=== PATIENT | female | born 1990 | race Caucasian/White ===

== ENCOUNTER → 2017-07-31 | Outpatient (CLI) | payer OTHER ==
[2017-07-31 09:43] LABS: HCT 35.1 % (34.0-46.0); HGB 11.8 gm/dL (11.4-16.0); MCH 32.3 pg (25.0-35.0); MCHC 33.6 g/dL (31.0-37.0); MCV 96.2 fL (80.0-100.0); Mean Platelet Volume 6.9; Platelet Count 231 k/uL (150-450); RBC 3.64 m/uL (3.80-5.40); RDW 13.5 % (11.5-15.5); WBC 7.3 k/uL (3.8-10.6)
[2017-07-31 10:04] LABS: Glucose 94 mg/dL (74-99)
[2017-07-31 17:06] LABS: HIV AB P24 Non-Reactive (Non-Reactive); HIV P24 AG Non-Reactive (Non-Reactive)
[2017-08-01 02:53] LABS: Toxoplasma Antibody (IgG) <3.0 IU/mL (<7.2); Toxoplasma Antibody (IgM) 3.7 AU/mL (<8.0)
[2017-08-01 09:07] LABS: Alpha Fetoprotein (M.O.M) 0.53; B-HCG (M.O.M.) 0.68; Gestational Age (days) 2; Human Chorionic Gonadotropin 14.1 IU/mL; Inhibin A (M.O.M.) 0.91; Maternal Age at EDD (Yrs) 29; Smoker No; Unconjugated Estriol (M.O.M.) 1.28
== END | disposition home or self-care (01) ==
LOC: LABWHC1 09:02
PROVIDERS: ATTEND Obstetrics & Gynecology
DX: O26.812 Pregnancy related exhaustion and fatigue, second trimester (principal); Z3A.00 Weeks of gestation of pregnancy not specified
CPT/HCPCS: 36415; 82105; 82565; 82677; 82947; 84443; 84702; 85027; 86336; 86762; 86777; 86778; 86780; 86850; 86900; 86901; 87340; 87390

== ENCOUNTER → 2017-09-20 | Outpatient (CLI) | payer OTHER ==
[2017-09-20 16:00] LABS: HCT 36.8 % (34.0-46.0); HGB 12.4 gm/dL (11.4-16.0); MCH 32.4 pg (25.0-35.0); MCHC 33.6 g/dL (31.0-37.0); MCV 96.4 fL (80.0-100.0); Mean Platelet Volume 6.3; Platelet Count 264 k/uL (150-450); RBC 3.82 m/uL (3.80-5.40); RDW 13.1 % (11.5-15.5); WBC 8.8 k/uL (3.8-10.6)
== END | disposition home or self-care (01) ==
LOC: LABWHC1 14:22
PROVIDERS: ATTEND Obstetrics & Gynecology
DX: Z34.82 Encounter for supervision of other normal pregnancy, second trimester (principal)
CPT/HCPCS: 36415; 82950; 85027

== ENCOUNTER 2017-10-19 11:34 | Outpatient (CLI) | payer OTHER ==
[2017-10-19 12:21] LABS: Appearance,Urine Cloudy (Clear); Bacteria,Urine Few /hpf; Bilirubin,Urine Negative (Negative); Blood,Urine Negative (Negative); Color,Urine Colorless; Glucose,Urine (UA) Negative (Negative); Ketones,Urine Negative (Negative); Leukocyte Esterase,Urine Negative (Negative); Nitrite,Urine Negative (Negative); Protein,Urine Negative (Negative); Specific Gravity,Urine 1.004 (1.001-1.035); Squamous Epithelial Cell,Urine 1 /hpf (0-4); Urobilinogen,Urine <2.0 mg/dL (<2.0); WBC,Urine 3 /hpf (0-5)
[2017-10-19 12:31] LABS: Basophils % (A) 0 %; Eosinophils # (A) 0.1 k/uL (0-0.7); Eosinophils % (A) 1 %; HCT 32.9 % (34.0-46.0); HGB 11.2 gm/dL (11.4-16.0); Lymphocytes # (A) 0.9 k/uL (1.0-4.8); Lymphocytes % (A) 11 %; MCH 31.9 pg (25.0-35.0); MCHC 34.1 g/dL (31.0-37.0); MCV 93.7 fL (80.0-100.0); Mean Platelet Volume 6.9; Monocytes # (A) 0.6 k/uL (0-1.0); Monocytes % (A) 7 %; Neutrophils # (A) 6.9 k/uL (1.3-7.7); Neutrophils % (A) 80 %; Platelet Count 221 k/uL (150-450); RBC 3.51 m/uL (3.80-5.40); RDW 12.9 % (11.5-15.5); WBC 8.6 k/uL (3.8-10.6)
[2017-10-19 12:45] LABS: ALT 31 U/L (9-52); AST 21 U/L (14-36); Albumin 2.9 g/dL (3.5-5.0); Alkaline Phosphatase 71 U/L (38-126); Anion Gap 6 mmol/L; Blood Urea Nitrogen 10 mg/dL (7-17); Calcium 8.7 mg/dL (8.4-10.2); Carbon Dioxide 22 mmol/L (22-30); Chloride 107 mmol/L (98-107); Glucose 98 mg/dL (74-99); LDH 401 U/L (313-618); Potassium 3.7 mmol/L (3.5-5.1); Sodium 135 mmol/L (137-145); Total Bilirubin 0.4 mg/dL (0.2-1.3); Total Protein 6.1 g/dL (6.3-8.2); Uric Acid 2.9 mg/dL (3.7-7.4)
[2017-10-19 13:27] VITALS: BP 121/75; PULSE 83; RESP 18; TEMP 97.9
--- NOTE | 2017-10-26 07:59 | P.MSEPDOC ---
Presenting Problems - Arrival Data Date of Arrival on Unit: 10/19/17 Time of Arrival on Unit: 11:40 Mode of Transport: Ambulatory Vital Signs - Temperature Temperature: 97.9 F Temperature Source: Oral - Pulse Right Pulse Oximetery Pulse Rate: 83 Pulse Assessment Method: Pulse Oximetry - Respirations Respiratory Rate: 18 Oxygen Delivery Method: Room Air O2 Sat by Pulse Oximetry: 97 - Blood Pressure Right Arm Blood Pressure: 121/75 Blood Pressure Mean: 90 Blood Pressure Source: Automatic Cuff Medical Screen Scoring (Post) - Cervical Exam Dilation: Exam Deferred Effacement: Exam Deferred Membranes: Intact - Uterine Contractions Frequency: > 5 minutes apart = 1 Duration: N/A Intensity: N/A - Maternal Vital Signs Maternal Temperature: N/A Maternal Blood Pressure: N/A Signs of Preeclampsia: N/A Maternal Respirations: N/A - Pain Assessment Pain Scale Used: Numeric (1 - 10) Pain Intensity: 0 - Maternal Trauma Maternal Trauma: N/A - Assessment Heart Rate: 125 Heart Rate - NICHD Category: Category I (Normal) = 0 NST: Reactive Position: N/A Station: N/A - Total Score Total Score (Post): 1 - Post Treatment Level of Risk Post Treatment Level of Risk: Low (0-5) Physician Notification (Post) - Physician Notified Physician Notified Date: 10/19/17 Physician Notified Time: 12:00 Physician/Practitioner Notified:: Dr Chavez Spoke With: via telephone New Order Received: Yes (PIH labwork done, serial BPS performed, Pt discharged home.) Disposition - Disposition OB Disposition: Discharge to home Discharge Date: 10/19/17 Discharge Time: 13:22 I agree with the RN Medical Screening Exam: Yes Risk & Benefit of care provided described in d/c instruction: Yes Diagnosis: RELATED CONDITIONS, UNSPECIFIED, THIRD TRIMESTER
== END 2017-10-19 13:22 | disposition home or self-care (01) ==
LOC: FBPOP 11:34
PROVIDERS: ATTEND Obstetrics & Gynecology
DX: O26.93 Pregnancy related conditions, unspecified, third trimester (principal); Z3A.00 Weeks of gestation of pregnancy not specified
CPT/HCPCS: 59025; 80053; 83615; 84550; 85025; 81001; G0463; 99215

== ENCOUNTER → 2017-10-23 00:26 | Outpatient (CLI) | payer OTHER ==
[2017-10-23 00:19] VITALS: BP 114/58; PULSE 96; RESP 16; TEMP 98.6
--- NOTE | 2017-10-30 08:14 | P.MSEPDOC ---
Presenting Problems - Arrival Data Date of Arrival on Unit: 10/23/17 Time of Arrival on Unit: 23:46 Mode of Transport: Wheelchair - Complaint OB-Reason for Admission/Chief Complaint: Pain Comment: Patient has a virus x 1 week and has been coughing x2 days and now is having right sided pain when she coughs. Medical History - Information : 7 Para: 0 Term: 1 : 0 Abortions: Spontaneous or Elective: 6 Number of Living Children: 1 - Gestational Age Gestational Age by ROSA MARIA (wks/days): 31 Weeks and 2 Days Review of Systems - Review of Systems Constitutional: No problems Breast: No problems ENT: No problems Cardiovascular: No problems Respiratory: No problems Gastrointestinal: No problems Genitourinary: No problems Musculoskeletal: No problems Neurological: No problems Skin: No problems Vital Signs - Temperature Temperature: 98.6 F Temperature Source: Oral - Pulse Pulse Oximetery Pulse Rate: 96 Pulse Assessment Method: Automatic Cuff - Respirations Respiratory Rate: 16 Oxygen Delivery Method: Room Air - Blood Pressure Sitting Blood Pressure: 114/58 Blood Pressure Mean: 76 Blood Pressure Source: Automatic Cuff Medical Screen Scoring (Pre) - Cervical Exam Dilation: Exam Deferred Effacement: Exam Deferred - Uterine Contractions Frequency: N/A Duration: N/A Intensity: N/A - Maternal Vital Signs Maternal Temperature: N/A Maternal Blood Pressure: N/A Signs of Preeclampsia: Headache = 1 Maternal Respirations: N/A - Maternal Trauma Maternal Trauma: N/A - Assessment Baseline FHR: 140 Heart Rate - NICHD Category: Category I (Normal) = 0 NST: Reactive Position: N/A Station: N/A - Total Score Total Score (Pre): 1 - Level of Risk Level of Risk: Low (0-5) Physician Notification (Pre) - Physician Notified Physician Notified Date: 10/23/17 Physician Notified Time: 00:01 Physician/Practitioner Notifed:: Dr. Moffett New Order Received: Yes - Notification Comment Comment: Orders given to obtain a reactive NST and then discharge patient to the ER Disposition - Disposition OB Disposition: Transfer to other dept./facility Transferred to:: ER Discharge Date: 10/23/17 Discharge Time: 00:27 I agree with the RN Medical Screening Exam: Yes Risk & Benefit of care provided described in d/c instruction: Yes Diagnosis: RELATED CONDITIONS, UNSPECIFIED, THIRD TRIMESTER Additional Diagnoses: pneumonia
== END | disposition other institution (70) ==
LOC: EDSTATUS 10-22 00:34 → FBPOP 10-22 23:46 → EC 00:32 → FBPOP 00:49
PROVIDERS: ATTEND Obstetrics & Gynecology
DX: O26.893 Other specified pregnancy related conditions, third trimester (principal); R52 Pain, unspecified; R05 Cough; Z3A.31 31 weeks gestation of pregnancy
CPT/HCPCS: 84112; G0463; 99213

== ENCOUNTER 2017-10-23 00:51 | Inpatient (IN) | payer OTHER ==
[2017-10-23] MEDS ORDERED: MORPHINE SULFATE 4 MG/ML SYRINGE IV STA (02:40)
[2017-10-23 03:00] LABS: Basophils % (A) 0 %; Eosinophils # (A) 0.2 k/uL (0-0.7); Eosinophils % (A) 2 %; HCT 32.6 % (34.0-46.0); HGB 10.6 gm/dL (11.4-16.0); Lymphocytes # (A) 1.1 k/uL (1.0-4.8); Lymphocytes % (A) 12 %; MCH 30.7 pg (25.0-35.0); MCHC 32.6 g/dL (31.0-37.0); MCV 94.4 fL (80.0-100.0); Mean Platelet Volume 6.4; Monocytes # (A) 0.7 k/uL (0-1.0); Monocytes % (A) 7 %; Neutrophils # (A) 7.5 k/uL (1.3-7.7); Neutrophils % (A) 78 %; Platelet Count 286 k/uL (150-450); RBC 3.46 m/uL (3.80-5.40); RDW 12.9 % (11.5-15.5); WBC 9.6 k/uL (3.8-10.6)
[2017-10-23 03:01] LABS: Appearance,Urine Clear (Clear); Bilirubin,Urine Negative (Negative); Blood,Urine Negative (Negative); Color,Urine Light Yellow; Glucose,Urine (UA) Negative (Negative); Ketones,Urine Negative (Negative); Leukocyte Esterase,Urine Negative (Negative); Nitrite,Urine Negative (Negative); PH, Urine 7.5 (5.0-8.0); Protein,Urine Negative (Negative); Specific Gravity,Urine 1.007 (1.001-1.035); Urobilinogen,Urine <2.0 mg/dL (<2.0)
[2017-10-23 03:09] LABS: ALT 27 U/L (9-52); AST 20 U/L (14-36); Albumin 2.8 g/dL (3.5-5.0); Alkaline Phosphatase 96 U/L (38-126); Anion Gap 8 mmol/L; Blood Urea Nitrogen 6 mg/dL (7-17); Calcium 7.9 mg/dL (8.4-10.2); Carbon Dioxide 19 mmol/L (22-30); Chloride 107 mmol/L (98-107); Glucose 79 mg/dL (74-99); Potassium 3.6 mmol/L (3.5-5.1); Sodium 134 mmol/L (137-145); Total Bilirubin 0.4 mg/dL (0.2-1.3); Uric Acid 3.3 mg/dL (3.7-7.4)
--- NOTE | 2017-10-23 04:21 | CT ---
EXAMINATION TYPE: CT chest angio for PE DATE OF EXAM: 10/23/2017 COMPARISON: None HISTORY: No prior, right sided chest pain and SOB, elevated d-dimer R/O PE, pt is [address] DLP: 154.90 mGycm Automated exposure control for dose reduction was used. CONTRAST: CT Chest for pulmonary embolism performed with with IV Contrast, patient injected with 70 mL of Isovu e 370. There are 3-D post processed images. FINDINGS: There is some consolidation in the anterior segment of the right upper lobe with multiple air broncho grams. Thoracic aorta appears normal. There is no evidence of aneurysm or dissection. I see no filling defec ts in the pulmonary arteries. There are a few mediastinal lymph nodes that measure up to 1 cm. I see no hilar mass. Heart size is normal. There is no pericardial effusion. There is no pleural effusion. The bony thorax is intact. IMPRESSION: No evidence of pulmonary embolism. Right upper lobe pneumonia. There are a few mediastinal lymph node s that are consistent with reactive adenopathy.
[2017-10-23] MEDS ORDERED: PNEUMONIA PROTOCOL UTILIZED 1 EACH MISC PO PRN (04:27)
[2017-10-23] MEDS ORDERED: AZITHROMYCIN 500 MG in SODIUM CHLORIDE 0.9% 250 ML IVPB STA (04:34)
[2017-10-23] MEDS: SODIUM CHLORIDE 0.9% 1,000 ML IV SCH ×4 (04:57→19:16)
[2017-10-23] MEDS ORDERED: cefTRIAXone IN SWFI 1,000 MG/10 ML SYRINGE IVP STA (05:50)
[2017-10-23 06:47] VITALS: BMI 26.6
[2017-10-23] MEDS ORDERED: HYDROcodone/APAP 5-325MG 1 EACH TAB PO PRN (07:23)
--- NOTE | 2017-10-23 07:28 | P.OBCN ---
History of Present Illness Consult date: 10/23/17 Requesting physician: Glenn Hunt Reason for consult: other (Intrauterine at 31 weeks with pneumonia) Chief complaint: 31 weeks with pneumonia History of present illness: Tonia is a 27-year-old female who is known to me from her course she is a she 7P1 who had up until the last few days felt relatively well with the . She was seen however over the weekend by my partner who was concerned about the possibility of preeclampsia due to severe headache and epigastric pain. At that time she had no cough and denied fever chills and nausea or vomiting. Since being discharge her symptoms have significantly worsened and she began to have a significant cough. Yesterday while she was at home she began to have a very bad coughing fit and felt a sharp stabbing pain in her right rib cage. This is what brought her to the hospital. She was seen initially in labor and delivery and the baby was cleared and then sent to the emergency room where a computed tomography scan was done to rule out pulmonary embolism but found right lobe pneumonia. She is admitted to Dr. Hunt for medical management and we are consulted for her . We are trying to obtain a sputum specimen and blood cultures are likely pending. She had previously denied any fever however she says that over the last few days when she is tried to take Tylenol for the pain she began to have sweating episodes. She does not sound like she is actually tried to take her temperature so is unclear if she has had any hyperpyrexia. heart tones were noted at approximately midnight and they were reactive in the 130s and she had a category 1 tracing. On physical exam vital signs are currently stable and she is afebrile. She is pulse ox in between 97 and 98% on room air. Heart regular, abdomen soft uterus is gravid. Extremities are without pain. Right lung does have adventitious sounds. We'll defer to medical management for treatment of same. Assessment intrauterine at 31 weeks with pneumonia Past Medical History Past Medical History: No Reported History Additional Past Medical History / Comment(s): kidney stones,multiple uti History of Any Multi-Drug Resistant Organisms: None Reported Past Surgical History: Bowel Resection Additional Past Surgical History / Comment(s): d&c, LEAP, gastroscesis at Past Anesthesia/Blood Transfusion Reactions: No Reported Reaction Past Psychological History: No Psychological Hx Reported Smoking Status: Former smoker Past Alcohol Use History: None Reported Past Drug Use History: Marijuana - Past Family History Mother Family Medical History: Osteoarthritis (OA) Additional Family Medical History / Comment(s): Degenerative disk disease Medications and Allergies Home Medications Medication Instructions Recorded Confirmed Type Pnv,Calcium 72/Iron/Folic Acid 1 each PO DAILY 10/19/17 10/19/17 History [ Plus Tablet] Allergies Allergy/AdvReac Type Severity Reaction Status Date / Time amoxicillin [Amoxicillin] Allergy Rash/Hives Verified 10/23/17 00:12 Penicillins Allergy Rash/Hives Verified 10/23/17 00:12 clindamycin AdvReac Unknown Verified 10/23/17 00:13 Exam Osteopathic Statement: *. No significant issues noted on an osteopathic structural exam other than those noted in the History and Physical/Consult. Vital Signs Temp Pulse Pulse Resp BP BP Pulse Ox 10/23/17 06:47 97 10/23/17 06:30 97.9 F 83 20 100/62 96 10/23/17 05:58 97.7 F 96 16 122/67 98 10/23/17 05:01 97 18 105/58 97 10/23/17 03:55 84 18 124/66 94 L 10/23/17 01:05 97.8 F 93 18 108/76 93 L Intake and Output 10/22/17 10/23/17 10/23/17 22:59 06:59 14:59 Other: Weight 79.379 kg - OBG Physical Exam Abdomen: bowel sounds normal Uterus: Gravid Results Result Diagrams: 10/23/17 02:52 10/23/17 02:52 Abnormal Lab Results - Last 24 Hours (Table) 10/23/17 10/23/17 10/23/17 Range/Units 02:52 02:52 03:26 RBC 3.46 L (3.80-5.40) m/uL Hgb 10.6 L (11.4-16.0) gm/dL Hct 32.6 L (34.0-46.0) % D-Dimer 2.01 H (<0.60) mg/L FEU Sodium 134 L (137-145) mmol/L Carbon Dioxide 19 L (22-30) mmol/L BUN 6 L (7-17) mg/dL Creatinine 0.47 L (0.52-1.04) mg/dL Uric Acid 3.3 L (3.7-7.4) mg/dL Calcium 7.9 L (8.4-10.2) mg/dL Total Protein 6.0 L (6.3-8.2) g/dL Albumin 2.8 L (3.5-5.0) g/dL
[2017-10-23] MEDS ORDERED: cefTRIAXone IN SWFI 1,000 MG/10 ML SYRINGE IVP SCH (09:00)
[2017-10-23] MEDS ORDERED: SODIUM CHLORIDE 0.9% 500 ML IV ONE (12:51)
[2017-10-23] MEDS ORDERED: ACETAMINOPHEN TAB 500 MG TAB PO PRN (12:53)
[2017-10-23] MEDS: ACETAMINOPHEN TAB 325 MG TAB PO PRN ×2 (14:17→20:15)
--- NOTE | 2017-10-23 14:50 | P.HPIM ---
History of Present Illness This is the first taking care of the patient , the whole encounter of today was done in the presence of bed side nurse Angela, including the examination This is a pleasant 27 years old female was currently and her 31st week of . Presents because of cough and chest pain.pt states last week she started feeling Headache and generalized muscle pain , for one week , she f/u with her doctor who treated symptomatically , however over the last two days she started to develop bad cough which basically dry associated with right side lower chest pain on the lateral side , it is like a ball, that mainly comes with cough and movement , otherwise it is either not there or only minimal . no phlegm . associated with sore throat. but deneis URT s/s , no sneezing . she denies sick contact , however she states duaghter of her boyfriend had strept throat last week.currently pt complaints from sore throat. however on examination there were no significant pharyngitis, no enlarged tonsil , no exudates was noted. pt states she is able to eat and drink the headache pt describes is frontal of one week , constant , dull achy pain , on and off about 5/10 in severity . pt denies fever but states when she took the norco pill eariler she got sweaty pt states her usual BP is (110/68) Reviewing vital shows no fever, no tachycardia or oxygen saturation is 96% on room air, however her blood pressure is on the low side at 86/54. Lap shows no leukocytosis with WBC at 9.6K, hemoglobin 10.6, elevated d-dimer at 2.01. Sodium 134, potassium 3.6, creatinine 0.4, she already had CT angiogram of the thorax which showed no evidence of pulmonary embolism. Right upper lobe pneumonia. There are a few mediastinal lymph nodes that are consistent with reactive adenopathy. Patient already has been placed on pain medicine with IV morphine and [place]. She was started already on Zithromax and ceftriaxone. Review of Systems CONSTITUTIONAL: No fever, no malaise, no fatigue. HEENT: No recent visual problems or hearing problems. Denied any sore throat. CARDIOVASCULAR: No orthopnea, PND, no palpitations, no syncope. GASTROINTESTINAL: No diarrhea, no nausea, no vomiting, no abdominal pain. Normoactive bowel sounds. NEUROLOGICAL: No headaches, no weakness, no numbness. HEMATOLOGICAL: Denies any bleeding or petechiae. GENITOURINARY: Denies any burning micturition, frequency, or urgency. MUSCULOSKELETAL/RHEUMATOLOGICAL: Denies any joint pain, swelling, or any muscle pain. ENDOCRINE: Denies any polyuria or polydipsia. Past Medical History Past Medical History: No Reported History Additional Past Medical History / Comment(s): kidney stones,multiple uti History of Any Multi-Drug Resistant Organisms: None Reported Past Surgical History: Bowel Resection Additional Past Surgical History / Comment(s): d&c, LEAP, gastroscesis at Past Anesthesia/Blood Transfusion Reactions: No Reported Reaction Past Psychological History: No Psychological Hx Reported Smoking Status: Former smoker Past Alcohol Use History: None Reported Past Drug Use History: Marijuana - Past Family History Mother Family Medical History: Osteoarthritis (OA) Additional Family Medical History / Comment(s): Degenerative disk disease Medications and Allergies Home Medications Medication Instructions Recorded Confirmed Type Pnv,Calcium 72/Iron/Folic Acid 1 each PO DAILY 10/19/17 10/19/17 History [ Plus Tablet] Allergies Allergy/AdvReac Type Severity Reaction Status Date / Time amoxicillin [Amoxicillin] Allergy Rash/Hives Verified 10/23/17 00:12 Penicillins Allergy Rash/Hives Verified 10/23/17 00:12 clindamycin AdvReac Unknown Verified 10/23/17 00:13 Physical Exam Vitals: Vital Signs Temp Pulse Pulse Resp BP BP Pulse Ox 10/23/17 09:30 97.2 F L 10/23/17 08:23 98.4 F 83 18 86/54 96 10/23/17 06:47 97 10/23/17 06:30 97.9 F 83 20 100/62 96 10/23/17 05:58 97.7 F 96 16 122/67 98 10/23/17 05:01 97 18 105/58 97 10/23/17 03:55 84 18 124/66 94 L 10/23/17 01:05 97.8 F 93 18 108/76 93 L Intake and Output 10/22/17 10/23/17 10/23/17 22:59 06:59 14:59 Other: # Voids 3 Weight 79.379 kg 79.379 kg -GENERAL: The patient is alert and oriented x3, not in any acute distress. Well developed, well nourished. coughing HEENT: Pupils are round and equally reacting to light. EOMI. No scleral icterus. No conjunctival pallor. Normocephalic, atraumatic. No pharyngeal erythema. No thyromegaly. , mild pharyngeal erythema, tonsils not enlarged , with no exudates. CARDIOVASCULAR: S1 and S2 present. No murmurs, rubs, or gallops. PULMONARY: Chest is clear to auscultation, no wheezing. mild crackles on right side. Right lateral lower chest tenderness ABDOMEN: Soft, nontender, distended from her , normoactive bowel sounds. No palpable organomegaly. MUSCULOSKELETAL: No joint swelling or deformity. EXTREMITIES: No cyanosis, clubbing, or pedal edema. NEUROLOGICAL: Gross neurological examination did not reveal any focal deficits. SKIN: No rashes. Results CBC & Chem 7: 10/23/17 02:52 10/23/17 02:52 Labs: Abnormal Lab Results - Last 24 Hours (Table) 10/23/17 10/23/17 10/23/17 Range/Units 02:52 02:52 03:26 RBC 3.46 L (3.80-5.40) m/uL Hgb 10.6 L (11.4-16.0) gm/dL Hct 32.6 L (34.0-46.0) % D-Dimer 2.01 H (<0.60) mg/L FEU Sodium 134 L (137-145) mmol/L Carbon Dioxide 19 L (22-30) mmol/L BUN 6 L (7-17) mg/dL Creatinine 0.47 L (0.52-1.04) mg/dL Uric Acid 3.3 L (3.7-7.4) mg/dL Calcium 7.9 L (8.4-10.2) mg/dL Total Protein 6.0 L (6.3-8.2) g/dL Albumin 2.8 L (3.5-5.0) g/dL Thrombosis Risk Factor Assmnt - Choose All That Apply Any of the Below Risk Factors Present?: Yes Each Factor Represents 1 point: Obesity (BMI >25), or Thrombosis Risk Factor Assessment Total Risk Factor Score: 2 Thrombosis Risk Factor Assessment Level: Low Risk Assessment and Plan Assessment: Community-acquired pneumonia , 31 week of . [employer] is following the case Hypotension Elevated d-dimer Plan: this is a pleasant 27 yo F who is 31 wk presents with possible pneumonia. Continue with same treatment. Continue symptomatic treatment. Continue with IV fluids. Call ID and pulmonary consult. [employer] following the skin and pedal of the Baby and . Monitor vitals and labs. Pain management. GI and DVT prophylaxis. Further recommendation is based of the clinical course the patient. Also patient had intravenous contrast already, and in view of her hypotension, we will continue with IV fluids to decrease the chances of contrast-induced nephropathy DVT prophylaxis, mechanical, patient is low risk for DVT. Heparin has more risk than benefit GI prophylaxis no need Prognosis Is guarded
--- NOTE | 2017-10-23 15:30 | US ---
EXAMINATION TYPE: US venous doppler duplex LE BI DATE OF EXAM: 10/23/2017 3:18 PM COMPARISON: NONE CLINICAL HISTORY: Rule out DVT. Elevated D Dimer per patient; 31 weeks gestation, pneumonia SIDE PERFORMED: Bilateral TECHNIQUE: The lower extremity deep venous system is examined utilizing real time linear array sonog spenser with graded compression, doppler sonography and color-flow sonography. VESSELS IMAGED: Common Femoral Vein Deep Femoral Vein Greater Saphenous Vein * Femoral Vein Popliteal Vein Small Saphenous Vein * Proximal Calf Veins (* superficial vessels) Grayscale, color doppler, spectral doppler imaging performed of the deep veins of the lower extremiti es. There is normal flow, compressibility, vascular waveforms. Right Leg: Negative for DVT Left Leg: Negative for DVT IMPRESSION: No evident deep venous thrombosis at or above the knees.
--- NOTE | 2017-10-23 17:27 | P.CNPUL ---
History of Present Illness Consult date: 10/23/17 Requesting physician: Bobby Beach Reason for consult: dyspnea, abnormal CXR/CT Chief complaint: Shortness of breath, cough, congestion History of present illness: This a very pleasant 27-year-old female patient who has a previous history of nephrolithiasis and multiple urinary tract infections. She does have a previous history of smoking along with marijuana use. None since . She is at 32 weeks gestation tomorrow. She presented here to the emergency room today with complaints of increasing shortness of breath, cough and congestion. She had a sharp stabbing pain in her right rib cage. She was seen initially in labor and delivery and the baby was cleared and then subsequently sent to the emergency room. CT scan was performed and ruled out pulmonary embolism which revealed no evidence of PE. Dopplers of the lower extremities ruled out DVT. She was noted however to have a significant right upper lobe pneumonia. There is also noted a few mediastinal lymph nodes consistent with reactive adenopathy. She had been having headaches and sinus congestion along with a sore throat several days before her arrival. She states she does have a coworker who has "walking pneumonia" and she also states her boyfriend's daughter who had strep throat recently. She is seen today in consultation in the labor and delivery department. She is awake and alert in no acute distress. She states she is breathing a little easier today as compared to yesterday. She's been afebrile. Maintaining good O2 saturations in the mid to upper 90s on room air. She's been hemodynamically stable. White count 9.6. Hemoglobin 10.6. Creatinine 0.47. Influenza A and B screens negative. Group A rapid strep negative. Urinalysis negative. She has been initiated on antibiotics in the form of ceftriaxone and azithromycin. Review of Systems Constitutional: Reports chills, Reports fatigue, Reports fever, Reports malaise , Reports weakness Eyes: denies blurred vision, denies pain Ears: deny: decreased hearing Ears, nose, mouth and throat: Reports headache, Reports hoarseness, Reports sinus pressure, Reports sore throat Breasts: bilateral: swelling Cardiovascular: Reports dyspnea on exertion, Reports shortness of breath Respiratory: Reports congestion, Reports cough, Reports dyspnea, Reports pain on inspiration, Reports pleurisy Gastrointestinal: Denies abdominal pain, Denies diarrhea, Denies nausea, Denies vomiting Genitourinary: Denies dysuria, Denies hematuria Menstruation: Reports as per HPI Musculoskeletal: Denies myalgias Integumentary: Denies pruritus, Denies rash Neurological: Denies numbness, Denies weakness Psychiatric: Denies anxiety, Denies depression Endocrine: Reports fatigue, Reports weight change Hematologic/Lymphatic: Reports as per HPI Allergic/Immunologic: Reports as per HPI Past Medical History Past Medical History: No Reported History Additional Past Medical History / Comment(s): kidney stones,multiple uti History of Any Multi-Drug Resistant Organisms: None Reported Past Surgical History: Bowel Resection Additional Past Surgical History / Comment(s): d&c, LEAP, gastroscesis at Past Anesthesia/Blood Transfusion Reactions: No Reported Reaction Past Psychological History: No Psychological Hx Reported Smoking Status: Former smoker Past Alcohol Use History: None Reported Past Drug Use History: Marijuana - Past Family History Mother Family Medical History: Osteoarthritis (OA) Additional Family Medical History / Comment(s): Degenerative disk disease Medications and Allergies Home Medications Medication Instructions Recorded Confirmed Type Pnv,Calcium 72/Iron/Folic Acid 1 each PO DAILY 10/19/17 10/19/17 History [ Plus Tablet] Allergies Allergy/AdvReac Type Severity Reaction Status Date / Time amoxicillin [Amoxicillin] Allergy Rash/Hives Verified 10/23/17 00:12 Penicillins Allergy Rash/Hives Verified 10/23/17 00:12 clindamycin AdvReac Unknown Verified 10/23/17 00:13 Physical Exam Vitals: Vital Signs Temp Pulse Pulse Resp BP BP BP 10/23/17 16:00 97.8 F 76 18 105/57 10/23/17 14:07 97 F L 81 18 107/66 10/23/17 09:30 97.2 F L 10/23/17 08:23 98.4 F 83 18 86/54 10/23/17 06:47 10/23/17 06:30 97.9 F 83 20 100/62 10/23/17 05:58 97.7 F 96 16 122/67 10/23/17 05:01 97 18 105/58 10/23/17 03:55 84 18 124/66 10/23/17 01:05 97.8 F 93 18 108/76 Pulse Ox 10/23/17 16:00 96 10/23/17 14:07 98 10/23/17 09:30 10/23/17 08:23 96 10/23/17 06:47 97 10/23/17 06:30 96 10/23/17 05:58 98 10/23/17 05:01 97 10/23/17 03:55 94 L 10/23/17 01:05 93 L Intake and Output 10/23/17 10/23/17 10/23/17 06:59 14:59 22:59 Intake Total 1000 Balance 1000 Intake: Intake, IV Titration 1000 Amount Sodium Chloride 0.9% 500 1000 ml @ 999 mls/hr IV .Q31M ONE Rx#:[id number] Other: # Voids 3 Weight 79.379 kg 79.379 kg GENERAL EXAM: Alert, active, comfortable in no apparent distress. HEAD: Normocephalic. EYES: Normal reaction of pupils, equal size. NOSE: Clear with pink turbinates. THROAT: No erythema or exudates. NECK: No masses, no JVD. CHEST: No chest wall deformity. LUNGS: Equal air entry with crackles in the right upper S2. CVS: S1 and S2 normal with no audible murmur, regular rhythm. ABDOMEN: Gravid uterus. No hepatosplenomegaly, normal bowel sounds, no guarding or rigidity. SPINE: No scoliosis or deformity SKIN: No rashes CENTRAL NERVOUS SYSTEM: No focal deficits, tone is normal in all 4 extremities. EXTREMITIES: There is no peripheral edema. No clubbing, no cyanosis. Peripheral pulses are intact. Results - Laboratory Findings CBC and BMP: 10/23/17 02:52 10/23/17 02:52 PT/INR, D-dimer D-Dimer 2.01 mg/L FEU (<0.60) H 10/23/17 03:26 Abnormal lab findings: Abnormal Labs 10/23/17 10/23/17 10/23/17 02:52 02:52 03:26 RBC 3.46 L Hgb 10.6 L Hct 32.6 L D-Dimer 2.01 H Sodium 134 L Carbon Dioxide 19 L BUN 6 L Creatinine 0.47 L Uric Acid 3.3 L Calcium 7.9 L Total Protein 6.0 L Albumin 2.8 L - Diagnostic Findings CT scan - chest: image reviewed Assessment and Plan Assessment: Impression: #1 Acute right upper lobe community-acquired pneumonia. Influenza A and B negative. Strep culture negative. #2 32 weeks gestation tomorrow. Being monitored in labor and delivery. #3 History of nephrolithiasis and frequent urinary tract infections. Urinalysis today negative. #4 History of bowel resection. #5 Former smoker. #6 Former marijuana use. Plan: The patient's case was reviewed and discussed with Dr. Chaney. CAT scan and labs reviewed. We'll go ahead and obtain Legionella urinary antigen. We will add bronchodilators and attempt to obtain a sputum sample. We will continue with her current antibiotics for suspected community-acquired pneumonia including ceftriaxone and azithromycin. Continue hydration with 0.9 normal saline at 100 ML's per hour. No need for steroids at this point. Continue to monitor her closely in the labor and delivery unit. We will continue to follow make further recommendations based on her clinical status. I, the cosigning physician, performed a history & physical examination of the patient. Lungs sounds with crackles in the right upper chest. Maintaining good O2 saturations in the 90s on room air. I discussed the assessment and plan of care with my nurse practitioner, Dasha Enriquez. I attest to the above consultation as dictated by her. Time with Patient: Greater than 30
[2017-10-23] MEDS: ALBUTEROL NEBULIZED 2.5 MG/3 ML INHALATION SCH (18:53)
--- NOTE | 2017-10-24 00:46 | P.CONS ---
History of Present Illness - Reason for Consult Consult date: 10/23/17 - Chief Complaint Shortness of breath with chills - History of Present Illness 27-year-old female who relates to a history of 1 prior completed , is at 32 weeks and doing well, following with a dietitian and her care. She relates that she's been on some family members that had strep throat and at work a co worker had walking pneumonia. the patient relates that she suddenly became somewhat ill she did have the sensation of fever but did not take her temperature, she definitely had some chills and sweats at times especially when she took Tylenol. She relates that she developed significant cough without much sputum production. The cough was unremitting and started to give her significant right-sided pleuritic chest pain. The coughing caused her to have a change in her vocal quality. Because she felt so poorly she was directed to the hospital for evaluation. Evaluation of the fetus showed no acute difficulties. The patient has now been admitted for evaluation. She did undergo a computed tomography scan with concerns to pulmonary emboli because of her severe pleuritic chest pain, shortness of breath. There was no evidence of any pulmonary embolus however right upper lobe pneumonia was found. The patient subsequently has been admitted, receiving breathing treatments fluids and antibiotic therapy. Because of her pneumonia the infectious diseases consultation was requested. The patient does relate a history of smoking stopping within the last couple of months. Review of Systems 27-year-old woman who bit of raspiness to her voice HEENT:Denies headache or acute visual change. Denies sinus or mouth discomforts. Denies neck stiffness or pain. Denies significant oral cavity pain. Denies difficulty on swallowing but has had a stiff and sore throat worsened by her significant cough Lungs: As per the HPI, shortness of breath no hemoptysis or pleuritic chest pain Cardiovascular: Pleuritic chest pain associated with cough and shortness of breath, she's had no loss of consciousness or syncope Gastrointestinal:Denies nausea, vomiting, diarrhea, constipation, hematemesis, melena, hematochezia. No no significant change of bowel habit noticed. Musculoskeletal: denies significant myalgias or arthralgias. No new joint swelling. Denies new back pain. Skin: Denies new rash or lesions. No new ulcers or wounds are related.. Neuro: Denies headache or visual change. Denies any new onset weakness or difficulty with ambulation. Denies falls or seizures. Psychiatric:Denies anxiety or depression. Endocrine: Denies significant fatigue, denies significant weight loss Past Medical History Past Medical History: No Reported History Additional Past Medical History / Comment(s): kidney stones,multiple uti History of Any Multi-Drug Resistant Organisms: None Reported Past Surgical History: Bowel Resection Additional Past Surgical History / Comment(s): d&c, LEAP, gastroscesis at Past Anesthesia/Blood Transfusion Reactions: No Reported Reaction Past Psychological History: No Psychological Hx Reported Additional Psychological History / Comment(s): Lives with her boyfriend he is caring for their 10-year-old son. Is no tobacco smoker stopping several months ago. No alcohol use. No recent travel. No experience. 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 Smoking Status: Former smoker Past Alcohol Use History: None Reported Past Drug Use History: Marijuana - Past Family History Mother Family Medical History: Osteoarthritis (OA) Additional Family Medical History / Comment(s): Degenerative disk disease Medications and Allergies Home Medications and Allergies Comment(s): Current Medications Acetaminophen (Tylenol Tab) 325 mg PO Q6HR PRN PRN Reason: Fever and/ or Mild Pain Last Admin: 10/23/17 20:15 Dose: 325 mg Albuterol Sulfate (Ventolin Nebulized) 2.5 mg INHALATION RT-QID [facility] Last Admin: 10/23/17 18:53 Dose: 2.5 mg Ceftriaxone Sodium (Rocephin) 1,000 mg IVP Q24H [facility] Sodium Chloride (Saline 0.9%) 1,000 mls @ 100 mls/hr IV .Q10H [facility] Last Admin: 10/23/17 19:16 Dose: 100 mls/hr Azithromycin 500 mg/ Sodium (Chloride) 250 mls @ 125 mls/hr IVPB DAILY [facility] Miscellaneous Information (Pneumonia Protocol Utilized) 1 each PO ONCE PRN PRN Reason: Per Protocol Home Medications Medication Instructions Recorded Confirmed Type Pnv,Calcium 72/Iron/Folic Acid 1 each PO DAILY 10/19/17 10/19/17 History [ Plus Tablet] Allergies Allergy/AdvReac Type Severity Reaction Status Date / Time amoxicillin [Amoxicillin] Allergy Rash/Hives Verified 10/23/17 00:12 Penicillins Allergy Rash/Hives Verified 10/23/17 00:12 clindamycin AdvReac Unknown Verified 10/23/17 00:13 Physical Exam Vitals: Vital Signs Temp Pulse Pulse Resp BP BP BP 10/24/17 00:00 10/23/17 23:48 98.6 F 87 20 111/62 10/23/17 19:01 91 16 10/23/17 18:53 90 16 10/23/17 16:00 97.8 F 76 18 105/57 10/23/17 14:07 97 F L 81 18 107/66 10/23/17 09:30 97.2 F L 10/23/17 08:23 98.4 F 83 18 86/54 10/23/17 06:47 10/23/17 06:30 97.9 F 83 20 100/62 10/23/17 05:58 97.7 F 96 16 122/67 10/23/17 05:01 97 18 105/58 10/23/17 03:55 84 18 124/66 10/23/17 01:05 97.8 F 93 18 108/76 Pulse Ox 10/24/17 00:00 98 10/23/17 23:48 98 10/23/17 19:01 10/23/17 18:53 10/23/17 16:00 97 10/23/17 14:07 98 10/23/17 09:30 10/23/17 08:23 96 10/23/17 06:47 97 10/23/17 06:30 96 10/23/17 05:58 98 10/23/17 05:01 97 10/23/17 03:55 94 L 10/23/17 01:05 93 L Intake and Output 10/23/17 10/23/17 10/24/17 14:59 22:59 06:59 Intake Total 1000 Balance 1000 Intake: Intake, IV Titration 1000 Amount Sodium Chloride 0.9% 500 1000 ml @ 999 mls/hr IV .Q31M ONE Rx#:[id number] Other: # Voids 4 Weight 79.379 kg 79.379 kg 27-year-old woman who appears about her stated age. 32 weeks of as noted, she. He is more comfortable now that she has been in multiple hours. HEENT: Anicteric conjunctiva are pink and moist nasal mucosa grossly intact without significant lesions, there is no thrush. Neck: The neck is supple without significant lymphadenopathy or thyromegaly. Lungs: Symmetrical air entry few expiratory wheezes few bronchial sounds in the posterior right upper zone area no detectable dullness or egophony Heart: Regular rate and rhythm with an audible S1-S2, no S3 no S4. There is no significant murmur click or rub, PMI was nondisplaced. Abdomen: 32 weeks , Positive bowel sounds soft and nontender without palpable masses or organomegaly. There was no guarding or rebound. Extremities: The upper extremities have excellent pulses they are symmetric, no significant petechiae or telangiectasia. No splinter hemorrhages were noted. The lower extremities are free from significant edema. The peripheral pulses were 2+ and symmetric. Neuro: Awake alert oriented to person place and time. There are no acute new gross focal sensory motor deficits. Results CBC & Chem 7: 10/23/17 02:52 10/23/17 02:52 Labs: Abnormal Lab Results - Last 24 Hours (Table) 10/23/17 10/23/17 10/23/17 Range/Units 02:52 02:52 03:26 RBC 3.46 L (3.80-5.40) m/uL Hgb 10.6 L (11.4-16.0) gm/dL Hct 32.6 L (34.0-46.0) % D-Dimer 2.01 H (<0.60) mg/L FEU Sodium 134 L (137-145) mmol/L Carbon Dioxide 19 L (22-30) mmol/L BUN 6 L (7-17) mg/dL Creatinine 0.47 L (0.52-1.04) mg/dL Uric Acid 3.3 L (3.7-7.4) mg/dL Calcium 7.9 L (8.4-10.2) mg/dL Total Protein 6.0 L (6.3-8.2) g/dL Albumin 2.8 L (3.5-5.0) g/dL Microbiology - Last 24 Hours (Table) 10/23/17 14:14 Group A Strep Throat Culture - Preliminary Throat Laboratory Results WBC 9.6 k/uL (3.8-10.6) 10/23/17 02:52 RBC 3.46 m/uL (3.80-5.40) L 10/23/17 02:52 Hgb 10.6 gm/dL (11.4-16.0) L 10/23/17 02:52 Hct 32.6 % (34.0-46.0) L 10/23/17 02:52 MCV 94.4 fL (80.0-100.0) 10/23/17 02:52 MCH 30.7 pg (25.0-35.0) 10/23/17 02:52 MCHC 32.6 g/dL (31.0-37.0) 10/23/17 02:52 RDW 12.9 % (11.5-15.5) 10/23/17 02:52 Plt Count 286 k/uL (150-450) 10/23/17 02:52 Neutrophils % 78 % 10/23/17 02:52 Lymphocytes % 12 % 10/23/17 02:52 Monocytes % 7 % 10/23/17 02:52 Eosinophils % 2 % 10/23/17 02:52 Basophils % 0 % 10/23/17 02:52 Neutrophils # 7.5 k/uL (1.3-7.7) 10/23/17 02:52 Lymphocytes # 1.1 k/uL (1.0-4.8) 10/23/17 02:52 Monocytes # 0.7 k/uL (0-1.0) 10/23/17 02:52 Eosinophils # 0.2 k/uL (0-0.7) 10/23/17 02:52 Basophils # 0.0 k/uL (0-0.2) 10/23/17 02:52 D-Dimer 2.01 mg/L FEU (<0.60) H 10/23/17 03:26 Sodium 134 mmol/L (137-145) L 10/23/17 02:52 Potassium 3.6 mmol/L (3.5-5.1) 10/23/17 02:52 Chloride 107 mmol/L (98-107) 10/23/17 02:52 Carbon Dioxide 19 mmol/L (22-30) L 10/23/17 02:52 Anion Gap 8 mmol/L 10/23/17 02:52 BUN 6 mg/dL (7-17) L 10/23/17 02:52 Creatinine 0.47 mg/dL (0.52-1.04) L 10/23/17 02:52 Est GFR (CKD-EPI)AfAm >90 (>60 ml/min/1.73 sqM) 10/23/17 02:52 Est GFR (CKD-EPI)NonAf >90 (>60 ml/min/1.73 sqM) 10/23/17 02:52 Glucose 79 mg/dL (74-99) 10/23/17 02:52 Uric Acid 3.3 mg/dL (3.7-7.4) L 10/23/17 02:52 Calcium 7.9 mg/dL (8.4-10.2) L 10/23/17 02:52 Total Bilirubin 0.4 mg/dL (0.2-1.3) 10/23/17 02:52 AST 20 U/L (14-36) 10/23/17 02:52 ALT 27 U/L (9-52) 10/23/17 02:52 Alkaline Phosphatase 96 U/L (38-126) 10/23/17 02:52 Total Protein 6.0 g/dL (6.3-8.2) L 10/23/17 02:52 Albumin 2.8 g/dL (3.5-5.0) L 10/23/17 02:52 Urine Color Light Yellow 10/23/17 02:52 Urine Appearance Clear (Clear) 10/23/17 02:52 Urine pH 7.5 (5.0-8.0) 10/23/17 02:52 Ur Specific [place] 1.007 (1.001-1.035) 10/23/17 02:52 Urine Protein Negative (Negative) 10/23/17 02:52 Urine Glucose (UA) Negative (Negative) 10/23/17 02:52 Urine Ketones Negative (Negative) 10/23/17 02:52 Urine Blood Negative (Negative) 10/23/17 02:52 Urine Nitrite Negative (Negative) 10/23/17 02:52 Urine Bilirubin Negative (Negative) 10/23/17 02:52 Urine Urobilinogen <2.0 mg/dL (<2.0) 10/23/17 02:52 Ur Leukocyte Esterase Negative (Negative) 10/23/17 02:52 Influenza Type A RNA Not Detected (Not Detectd) 10/23/17 14:14 Influenza Type B (PCR) Not Detected (Not Detectd) 10/23/17 14:14 Group A Strep Rapid Negative (Negative) 10/23/17 14:14 Microbiology 10/23/17 14:14 Throat Group A Strep Throat Culture - Preliminary Microbiology 10/23/17 14:14 Throat Group A Strep Throat Culture - Preliminary Assessment and Plan (1) 32 weeks gestation of Current Visit: Yes Status: Acute Code(s): Z3A.32 - 32 WEEKS GESTATION OF SNOMED Code(s): 2854945 (2) Right upper lobe pneumonia Narrative/Plan: Pleasant 27-year-old female who does have a history of tobacco smoking stopping several months ago and is noted is 32 weeks into the became acutely ill and has now been admitted. CT angiogram reveal evidence of the distinct right upper lobe pneumonia. Since admission with respiratory treatments, antibiotics, and fluids she is doing considerably better. She was able to rest for multiple hours as afternoon which has not been able to do for the last few days because of her severe coughing. She is not having much sputum production. They do have a pool at the home and she relates that she her son did get in the pool and move around the sediment that had fallen to the bottom open the filter could pick it up. However once they had done this to realize the water was very cloudy and they did a shock treatment and she has not been swimming since that time last week. The son has not been ill. She does work with the general public. In streptococcus pneumonia remains most common pathogen, however with the state of relatively immunocompromised the fact that she is a smoker she is at risk of mycoplasma as well as Legionella. Testing is requested. Antibiotic therapy with ceftriaxone and azithromycin will be continued for now with ongoing supportive care and she was monitored in cultures reviewed. Current Visit: Yes Status: Acute Code(s): J18.1 - LOBAR PNEUMONIA, UNSPECIFIED ORGANISM SNOMED Code(s): 879519567
[2017-10-24] MEDS ORDERED: CALCIUM CARBONATE 500 MG CHEWABLE PO PRN (05:04)
[2017-10-24] MEDS: HYDROcodone/APAP 5-325MG 1 EACH TAB PO PRN ×3 (05:16→19:29)
[2017-10-24] MEDS ORDERED: AZITHROMYCIN 500 MG in SODIUM CHLORIDE 0.9% 250 ML IVPB SCH (06:00)
[2017-10-24] MEDS: SODIUM CHLORIDE 0.9% 1,000 ML IV SCH ×2 (07:12→21:27)
[2017-10-24] MEDS: cefTRIAXone IN SWFI 1,000 MG/10 ML SYRINGE IVP SCH (07:13)
[2017-10-24 07:33] LABS: Basophils % (A) 0 %; Eosinophils # (A) 0.2 k/uL (0-0.7); Eosinophils % (A) 2 %; HCT 30.7 % (34.0-46.0); HGB 10.2 gm/dL (11.4-16.0); Lymphocytes # (A) 0.9 k/uL (1.0-4.8); Lymphocytes % (A) 9 %; MCH 31.7 pg (25.0-35.0); MCHC 33.3 g/dL (31.0-37.0); MCV 95.1 fL (80.0-100.0); Mean Platelet Volume 6.4; Monocytes # (A) 0.6 k/uL (0-1.0); Monocytes % (A) 6 %; Neutrophils # (A) 7.4 k/uL (1.3-7.7); Neutrophils % (A) 81 %; Platelet Count 337 k/uL (150-450); RBC 3.23 m/uL (3.80-5.40); RDW 13.1 % (11.5-15.5); WBC 9.2 k/uL (3.8-10.6)
[2017-10-24 08:13] LABS: Anion Gap 6 mmol/L; Blood Urea Nitrogen 7 mg/dL (7-17); Calcium 7.5 mg/dL (8.4-10.2); Carbon Dioxide 17 mmol/L (22-30); Chloride 112 mmol/L (98-107); Glucose 80 mg/dL (74-99); Potassium 3.8 mmol/L (3.5-5.1); Sodium 135 mmol/L (137-145)
[2017-10-24] MEDS: ALBUTEROL NEBULIZED 2.5 MG/3 ML INHALATION SCH ×5 (08:14→21:50)
--- NOTE | 2017-10-24 08:16 | P.PN ---
Progress Note - Text Progress Note Date: 10/24/17 Overall Tonia appears about the same. NST has been reactive. No real change from yesterday. Still having right-sided rib pain. She felt like it has gotten better but last night began coughing heart again and then had an the return of the pain. Her vital signs are otherwise stable and she is currently afebrile. Assessment intrauterine at 32 weeks with pneumonia: Plan continue current medical care
[2017-10-24] MEDS: AZITHROMYCIN 500 MG in SODIUM CHLORIDE 0.9% 250 ML IVPB SCH (10:38)
--- NOTE | 2017-10-24 14:36 | P.PN ---
Subjective Progress Note Date: 10/24/17 Principal diagnosis: Right upper lobe pneumonia This a very pleasant 27-year-old female patient who has a previous history of nephrolithiasis and multiple urinary tract infections. She does have a previous history of smoking along with marijuana use. None since . She is at 32 weeks gestation tomorrow. She presented here to the emergency room today with complaints of increasing shortness of breath, cough and congestion. She had a sharp stabbing pain in her right rib cage. She was seen initially in labor and delivery and the baby was cleared and then subsequently sent to the emergency room. CT scan was performed and ruled out pulmonary embolism which revealed no evidence of PE. Dopplers of the lower extremities ruled out DVT. She was noted however to have a significant right upper lobe pneumonia. There is also noted a few mediastinal lymph nodes consistent with reactive adenopathy. She had been having headaches and sinus congestion along with a sore throat several days before her arrival. She states she does have a coworker who has "walking pneumonia" and she also states her boyfriend's daughter who had strep throat recently. She is seen today in consultation in the labor and delivery department. She is awake and alert in no acute distress. She states she is breathing a little easier today as compared to yesterday. She's been afebrile. Maintaining good O2 saturations in the mid to upper 90s on room air. She's been hemodynamically stable. White count 9.6. Hemoglobin 10.6. Creatinine 0.47. Influenza A and B screens negative. Group A rapid strep negative. Urinalysis negative. She has been initiated on antibiotics in the form of ceftriaxone and azithromycin. The patient is seen again today 10/24/2017 in the labor and delivery unit. She is currently awake and alert in no acute distress. He is maintaining good O2 saturations in the 90s on room air. She still has a loose nonproductive cough. She is still having quite a bit of a right lower chest discomfort most likely from coughing and pulled muscle. CAT scan was consistent with a right upper lobe pneumonia. She has no pain in the right upper chest. Blood cultures and group A strep culture is still pending. She remains on antibiotics in form of ceftriaxone and azithromycin. White count 9.2. Hemoglobin 10.2. Creatinine 0.43. Objective - Vital Signs Vital signs: Vital Signs Temp 98.6 F 10/23/17 23:48 Pulse 90 10/24/17 08:25 Resp 16 10/24/17 08:00 BP 111/62 10/23/17 23:48 Pulse Ox 97 10/24/17 08:00 Intake & Output 10/23/17 10/24/17 10/24/17 18:59 06:59 18:59 Intake Total 1000 Balance 1000 Weight 79.379 kg 79.379 kg Intake: Intake, IV Titration 1000 Amount Sodium Chloride 0.9% 500 1000 ml @ 999 mls/hr IV .Q31M ONE Rx#:[id number] Other: # Voids 3 - Exam GENERAL EXAM: Alert, active, fairly comfortable in no apparent distress. HEAD: Normocephalic. EYES: Normal reaction of pupils, equal size. NOSE: Clear with pink turbinates. THROAT: No erythema or exudates. NECK: No masses, no JVD. CHEST: No chest wall deformity. Right-sided chest wall pain. LUNGS: Equal air entry with crackles in the right upper chest. CVS: S1 and S2 normal with no audible murmur, regular rhythm. ABDOMEN: Gravid uterus. No hepatosplenomegaly, normal bowel sounds, no guarding or rigidity. SPINE: No scoliosis or deformity SKIN: No rashes CENTRAL NERVOUS SYSTEM: No focal deficits, tone is normal in all 4 extremities. EXTREMITIES: There is no peripheral edema. No clubbing, no cyanosis. Peripheral pulses are intact. - Labs CBC & Chem 7: 10/24/17 06:56 10/24/17 06:56 Labs: Abnormal Lab Results - Last 24 Hours (Table) 10/24/17 10/24/17 Range/Units 06:56 06:56 RBC 3.23 L (3.80-5.40) m/uL Hgb 10.2 L (11.4-16.0) gm/dL Hct 30.7 L (34.0-46.0) % Lymphocytes # 0.9 L (1.0-4.8) k/uL Sodium 135 L (137-145) mmol/L Chloride 112 H (98-107) mmol/L Carbon Dioxide 17 L (22-30) mmol/L Creatinine 0.43 L (0.52-1.04) mg/dL Calcium 7.5 L (8.4-10.2) mg/dL Microbiology - Last 24 Hours (Table) 10/23/17 04:56 Blood Culture - Preliminary Blood No Growth after 24 hours 10/23/17 14:14 Group A Strep Throat Culture - Preliminary Throat Assessment and Plan Assessment: Impression: #1 Acute right upper lobe community-acquired pneumonia. Influenza A and B negative. Rapid strep negative. Strep culture pending. The cultures pending. Legionella antigen pending #2 32 weeks gestation. Being monitored in labor and delivery. #3 History of nephrolithiasis and frequent urinary tract infections. Urinalysis today negative. #4 History of bowel resection. #5 Former smoker. #6 Former marijuana use. Plan: The patient's case was reviewed and discussed with Dr. Chaney. We will continue with her current antibiotics for community-acquired pneumonia including ceftriaxone and azithromycin. Tinea bronchodilators. Continue hydration with 0.9 normal saline at 100 ML's per hour. Continue to monitor her closely in the labor and delivery unit. We will continue to follow make further recommendations based on her clinical status. I, the cosigning physician, performed a history & physical examination of the patient. Lungs sounds with crackles in the right upper chest. Maintaining good O2 saturations in the 90s on room air. I discussed the assessment and plan of care with my nurse practitioner, Dasha Enriquez. I attest to the above consultation as dictated by her.
--- NOTE | 2017-10-24 20:37 | P.PN ---
Subjective This is a pleasant 27 years old female was currently and her 31st week of . Presents because of cough and chest pain.pt states last week she started feeling Headache and generalized muscle pain , for one week , she f/u with her doctor who treated symptomatically , however over the last two days she started to develop bad cough which basically dry associated with right side lower chest pain on the lateral side , it is like a ball, that mainly comes with cough and movement , otherwise it is either not there or only minimal . no phlegm . associated with sore throat. but deneis URT s/s , no sneezing . she denies sick contact , however she states duaghter of her boyfriend had strept throat last week.currently pt complaints from sore throat. however on examination there were no significant pharyngitis, no enlarged tonsil , no exudates was noted. pt states she is able to eat and drink the headache pt describes is frontal of one week , constant , dull achy pain , on and off about 5/10 in severity . pt denies fever but states when she took the norco pill eariler she got sweaty pt states her usual BP is (110/68) Reviewing vital shows no fever, no tachycardia or oxygen saturation is 96% on room air, however her blood pressure is on the low side at 86/54. Lap shows no leukocytosis with WBC at 9.6K, hemoglobin 10.6, elevated d-dimer at 2.01. Sodium 134, potassium 3.6, creatinine 0.4, she already had CT angiogram of the thorax which showed no evidence of pulmonary embolism. Right upper lobe pneumonia. There are a few mediastinal lymph nodes that are consistent with reactive adenopathy. Patient already has been placed on pain medicine with IV morphine and [place]. She was started already on Zithromax and ceftriaxone. 10/24/2017 pt feels little better , she is still coughing and has pleuretic chest pain , pain looks controlled. pulmonary and ID notes and input is appreciated , we will continue with the same antibioitic of cetfriaxone and zithromax as per their recommendation , and pt agrees with the plan of treatment . pt to continue with iv fluids , her vitals are stable . no abd pain , no change in urine or bowel habits, no fever . no leukocytosis , image shows right possible lobar pna, indicative of significant pna and the treatment is necessary for now REVIEW OF SYSTEMS: CONSTITUTIONAL: No fever HEENT: No recent visual problems or hearing problems. Denied any sore throat. CARDIOVASCULAR: No orthopnea, PND, no palpitations, no syncope. PULMONARY: no hemoptysis. GASTROINTESTINAL: No diarrhea, no nausea, no vomiting, no abdominal pain. Normoactive bowel sounds. NEUROLOGICAL: No headaches, no weakness, no numbness. HEMATOLOGICAL: Denies any bleeding or petechiae. GENITOURINARY: Denies any burning micturition, frequency, or urgency. MUSCULOSKELETAL/RHEUMATOLOGICAL: Denies any joint pain, swelling, or any muscle pain. ENDOCRINE: Denies any polyuria or polydipsia. Objective - Vital Signs Vital signs: Vital Signs Temp 96.4 F L 10/24/17 16:00 Pulse 88 10/24/17 16:00 Resp 16 10/24/17 16:00 BP 99/60 10/24/17 16:00 Pulse Ox 98 10/24/17 16:00 Intake & Output 10/24/17 10/24/17 10/25/17 06:59 18:59 06:59 Intake Total 250 Balance 250 Weight 79.379 kg Intake: Oral 250 Other: # Voids 3 - Exam -GENERAL: The patient is alert and oriented x3, not in any acute distress. Well developed, well nourished. coughing HEENT: Pupils are round and equally reacting to light. EOMI. No scleral icterus. No conjunctival pallor. Normocephalic, atraumatic. No pharyngeal erythema. No thyromegaly. , mild pharyngeal erythema, tonsils not enlarged , with no exudates. CARDIOVASCULAR: S1 and S2 present. No murmurs, rubs, or gallops. PULMONARY: Chest is clear to auscultation, no wheezing. mild crackles on right side. Right lateral lower chest tenderness ABDOMEN: Soft, nontender, distended from her , normoactive bowel sounds. No palpable organomegaly. MUSCULOSKELETAL: No joint swelling or deformity. EXTREMITIES: No cyanosis, clubbing, or pedal edema. NEUROLOGICAL: Gross neurological examination did not reveal any focal deficits. SKIN: No rashes. - Labs CBC & Chem 7: 10/24/17 06:56 10/24/17 06:56 Labs: Abnormal Lab Results - Last 24 Hours (Table) 10/24/17 10/24/17 Range/Units 06:56 06:56 RBC 3.23 L (3.80-5.40) m/uL Hgb 10.2 L (11.4-16.0) gm/dL Hct 30.7 L (34.0-46.0) % Lymphocytes # 0.9 L (1.0-4.8) k/uL Sodium 135 L (137-145) mmol/L Chloride 112 H (98-107) mmol/L Carbon Dioxide 17 L (22-30) mmol/L Creatinine 0.43 L (0.52-1.04) mg/dL Calcium 7.5 L (8.4-10.2) mg/dL Microbiology - Last 24 Hours (Table) 10/23/17 14:15 Blood Culture - Preliminary Blood No Growth after 24 hours 10/23/17 04:56 Blood Culture - Preliminary Blood No Growth after 24 hours 10/23/17 14:14 Group A Strep Throat Culture - Preliminary Throat Assessment and Plan Assessment: Community-acquired pneumonia, right upper lobe , 31 week of . [employer] INS[employer]ANCE CLAIM ADJUSTER is following the case Hypotension, resolved Elevated d-dimer, with negative DVT and PE Plan: this is a pleasant 27 yo F who is 31 wk presents with possible pneumonia. Continue with same treatment. Continue symptomatic treatment. Continue with IV fluids. Call ID and pulmonary consult. [employer] INSURANCE CLAIM ADJUSTER following the skin and pedal of the Baby and . Monitor vitals and labs. Pain management. GI and DVT prophylaxis. Further recommendation is based of the clinical course the patient. continue with iv fluid DVT prophylaxis, mechanical, patient is low risk for DVT. Heparin has more risk than benefit GI prophylaxis no need Prognosis Is guarded
[2017-10-25] MEDS: HYDROcodone/APAP 5-325MG 1 EACH TAB PO PRN ×3 (04:08→19:35)
--- NOTE | 2017-10-25 05:50 | P.PN ---
Progress Note - Text Progress Note Date: 10/25/17 Hospital day #3. Patient is resting without new complaints. Vital signs are stable she appears to be afebrile. Nonstress test is reactive. Patient is being treated by medicine for pneumonia. Plan is to continue testing until discharge. We'll continue to follow with medicine.
[2017-10-25] MEDS: SODIUM CHLORIDE 0.9% 1,000 ML IV SCH ×2 (07:27→23:16)
[2017-10-25] MEDS: cefTRIAXone IN SWFI 1,000 MG/10 ML SYRINGE IVP SCH (07:27)
[2017-10-25 07:46] LABS: Basophils % (A) 0 %; Eosinophils # (A) 0.2 k/uL (0-0.7); Eosinophils % (A) 2 %; HCT 30.4 % (34.0-46.0); Lymphocytes # (A) 1.1 k/uL (1.0-4.8); Lymphocytes % (A) 15 %; MCH 30.8 pg (25.0-35.0); MCHC 32.8 g/dL (31.0-37.0); MCV 94.1 fL (80.0-100.0); Mean Platelet Volume 6.3; Monocytes # (A) 0.5 k/uL (0-1.0); Monocytes % (A) 6 %; Neutrophils # (A) 5.6 k/uL (1.3-7.7); Neutrophils % (A) 75 %; Platelet Count 331 k/uL (150-450); RBC 3.23 m/uL (3.80-5.40); WBC 7.4 k/uL (3.8-10.6)
[2017-10-25 08:10] LABS: Anion Gap 4 mmol/L; Blood Urea Nitrogen 5 mg/dL (7-17); Calcium 7.7 mg/dL (8.4-10.2); Carbon Dioxide 21 mmol/L (22-30); Chloride 112 mmol/L (98-107); Glucose 69 mg/dL (74-99); Potassium 3.7 mmol/L (3.5-5.1); Sodium 137 mmol/L (137-145)
[2017-10-25] MEDS: AZITHROMYCIN 500 MG in SODIUM CHLORIDE 0.9% 250 ML IVPB SCH (08:26)
[2017-10-25] MEDS: ALBUTEROL NEBULIZED 2.5 MG/3 ML INHALATION SCH ×4 (08:41→19:51)
--- NOTE | 2017-10-25 10:48 | P.PN ---
Subjective This is a pleasant 27 years old female was currently and her 31st week of . Presents because of cough and chest pain.pt states last week she started feeling Headache and generalized muscle pain , for one week , she f/u with her doctor who treated symptomatically , however over the last two days she started to develop bad cough which basically dry associated with right side lower chest pain on the lateral side , it is like a ball, that mainly comes with cough and movement , otherwise it is either not there or only minimal . no phlegm . associated with sore throat. but deneis URT s/s , no sneezing . she denies sick contact , however she states duaghter of her boyfriend had strept throat last week.currently pt complaints from sore throat. however on examination there were no significant pharyngitis, no enlarged tonsil , no exudates was noted. pt states she is able to eat and drink the headache pt describes is frontal of one week , constant , dull achy pain , on and off about 5/10 in severity . pt denies fever but states when she took the norco pill eariler she got sweaty pt states her usual BP is (110/68) Reviewing vital shows no fever, no tachycardia or oxygen saturation is 96% on room air, however her blood pressure is on the low side at 86/54. Lap shows no leukocytosis with WBC at 9.6K, hemoglobin 10.6, elevated d-dimer at 2.01. Sodium 134, potassium 3.6, creatinine 0.4, she already had CT angiogram of the thorax which showed no evidence of pulmonary embolism. Right upper lobe pneumonia. There are a few mediastinal lymph nodes that are consistent with reactive adenopathy. Patient already has been placed on pain medicine with IV morphine and Junior. She was started already on Zithromax and ceftriaxone. 10/24/2017 pt feels little better , she is still coughing and has pleuretic chest pain , pain looks controlled. pulmonary and ID notes and input is appreciated , we will continue with the same antibioitic of cetfriaxone and zithromax as per their recommendation , and pt agrees with the plan of treatment . pt to continue with iv fluids , her vitals are stable . no abd pain , no change in urine or bowel habits, no fever . no leukocytosis , image shows right possible lobar pna, indicative of significant pna and the treatment is necessary for now 10/25/2017 pt still has dry coughing, associated with right lower chest pain, but looks the same. Patient has mild dyspnea. She doesn't have any change in bowel or urine habits. No fever. Labs reviewed was no significant difference. Her WBC today is 7.4K, coming down from 9.2. Neutrophils 5.6. Electrolytes within normal limits. Creatinine 0.4 patient continue on IV antibiotics And Zithromax , As per ID and Pulmonary Recommendation. Benefits More Than Risk. Patient Continue with IV Fluids. Her Vitals and Blood Pressure Is Been Stable. Cultures so far negative, throat culture: Pending Objective - Vital Signs Vital signs: Vital Signs Temp 97.7 F 10/25/17 08:25 Pulse 84 10/25/17 08:51 Resp 18 10/25/17 08:25 BP 101/58 10/25/17 08:25 Pulse Ox 98 10/25/17 08:25 Intake & Output 10/24/17 10/25/17 10/25/17 18:59 06:59 18:59 Intake Total 250 1200 Balance 250 1200 Intake: Oral 250 1200 Other: # Voids 2 - Exam Today exam, in the holding counter, done in the process of the nurse Maris on 10/23, like every day -GENERAL: The patient is alert and oriented x3, not in any acute distress. Well developed, well nourished. coughing HEENT: Pupils are round and equally reacting to light. EOMI. No scleral icterus. No conjunctival pallor. Normocephalic, atraumatic. No pharyngeal erythema. No thyromegaly. , mild pharyngeal erythema, tonsils not enlarged , with no exudates. CARDIOVASCULAR: S1 and S2 present. No murmurs, rubs, or gallops. PULMONARY: Chest is clear to auscultation, no wheezing. mild crackles on right side. Right lateral lower chest tenderness ABDOMEN: Soft, nontender, distended from her , normoactive bowel sounds. No palpable organomegaly. MUSCULOSKELETAL: No joint swelling or deformity. EXTREMITIES: No cyanosis, clubbing, or pedal edema. NEUROLOGICAL: Gross neurological examination did not reveal any focal deficits. SKIN: No rashes. - Labs CBC & Chem 7: 10/25/17 07:10 10/25/17 07:10 Labs: Abnormal Lab Results - Last 24 Hours (Table) 10/25/17 10/25/17 Range/Units 07:10 07:10 RBC 3.23 L (3.80-5.40) m/uL Hgb 10.0 L (11.4-16.0) gm/dL Hct 30.4 L (34.0-46.0) % Chloride 112 H (98-107) mmol/L Carbon Dioxide 21 L (22-30) mmol/L BUN 5 L (7-17) mg/dL Creatinine 0.41 L (0.52-1.04) mg/dL Glucose 69 L (74-99) mg/dL Calcium 7.7 L (8.4-10.2) mg/dL Microbiology - Last 24 Hours (Table) 10/23/17 04:56 Blood Culture - Preliminary Blood No Growth after 48 hours 10/23/17 14:15 Blood Culture - Preliminary Blood No Growth after 24 hours Assessment and Plan Assessment: Community-acquired pneumonia, right upper lobe , 31 week of . HORSE [facility]ER is following the case Hypotension, resolved Elevated d-dimer, with negative DVT and PE Plan: this is a pleasant 27 yo F who is 31 wk presents with possible pneumonia. Continue with same treatment. Continue symptomatic treatment. Continue with IV fluids. ID and pulmonary consults are appreciated. H[facility]SE [facility]ER following the care of the Baby and . Monitor vitals and labs. Pain management. GI and DVT prophylaxis. Further recommendation is based of the clinical course the patient. continue with iv fluid DVT prophylaxis, mechanical, patient is low risk for DVT. Heparin has more risk than benefit GI prophylaxis no need Prognosis Is guarded
--- NOTE | 2017-10-25 16:26 | P.PN ---
Subjective Progress Note Date: 10/25/17 Principal diagnosis: Right upper lobe pneumonia This a very pleasant 27-year-old female patient who has a previous history of nephrolithiasis and multiple urinary tract infections. She does have a previous history of smoking along with marijuana use. None since . She is at 32 weeks gestation tomorrow. She presented here to the emergency room today with complaints of increasing shortness of breath, cough and congestion. She had a sharp stabbing pain in her right rib cage. She was seen initially in labor and delivery and the baby was cleared and then subsequently sent to the emergency room. CT scan was performed and ruled out pulmonary embolism which revealed no evidence of PE. Dopplers of the lower extremities ruled out DVT. She was noted however to have a significant right upper lobe pneumonia. There is also noted a few mediastinal lymph nodes consistent with reactive adenopathy. She had been having headaches and sinus congestion along with a sore throat several days before her arrival. She states she does have a coworker who has "walking pneumonia" and she also states her boyfriend's daughter who had strep throat recently. She is seen today in consultation in the labor and delivery department. She is awake and alert in no acute distress. She states she is breathing a little easier today as compared to yesterday. She's been afebrile. Maintaining good O2 saturations in the mid to upper 90s on room air. She's been hemodynamically stable. White count 9.6. Hemoglobin 10.6. Creatinine 0.47. Influenza A and B screens negative. Group A rapid strep negative. Urinalysis negative. She has been initiated on antibiotics in the form of ceftriaxone and azithromycin. The patient is seen again today 10/24/2017 in the labor and delivery unit. She is currently awake and alert in no acute distress. He is maintaining good O2 saturations in the 90s on room air. She still has a loose nonproductive cough. She is still having quite a bit of a right lower chest discomfort most likely from coughing and pulled muscle. CAT scan was consistent with a right upper lobe pneumonia. She has no pain in the right upper chest. Blood cultures and group A strep culture is still pending. She remains on antibiotics in form of ceftriaxone and azithromycin. White count 9.2. Hemoglobin 10.2. Creatinine 0.43. The patient is seen again today 10/25/2017 in follow-up in the labor and delivery unit. She is doing much better pulmonary-lozano. She denies any worsening shortness of breath, cough or congestion. Her right-sided chest wall pain has subsided. Blood and throat cultures are negative. White count 7.4. Hemoglobin 10.0. Creatinine 0.41. She is maintaining good O2 saturations in the 90s on room air. She's afebrile. Objective - Vital Signs Vital signs: Vital Signs Temp 98.1 F 10/25/17 15:43 Pulse 84 10/25/17 15:43 Resp 16 10/25/17 15:43 BP 86/48 10/25/17 15:43 Pulse Ox 95 10/25/17 15:42 Intake & Output 10/24/17 10/25/17 10/25/17 18:59 06:59 18:59 Intake Total 250 1200 400 Balance 250 1200 400 Intake: Oral 250 1200 400 Other: # Voids 2 4 - Exam GENERAL EXAM: Alert, active, fairly comfortable in no apparent distress. HEAD: Normocephalic. EYES: Normal reaction of pupils, equal size. NOSE: Clear with pink turbinates. THROAT: No erythema or exudates. NECK: No masses, no JVD. CHEST: No chest wall deformity. Right-sided chest wall pain. LUNGS: Equal air entry with crackles in the right upper chest. CVS: S1 and S2 normal with no audible murmur, regular rhythm. ABDOMEN: Gravid uterus. No hepatosplenomegaly, normal bowel sounds, no guarding or rigidity. SPINE: No scoliosis or deformity SKIN: No rashes CENTRAL NERVOUS SYSTEM: No focal deficits, tone is normal in all 4 extremities. EXTREMITIES: There is no peripheral edema. No clubbing, no cyanosis. Peripheral pulses are intact. - Labs CBC & Chem 7: 10/25/17 07:10 10/25/17 07:10 Labs: Abnormal Lab Results - Last 24 Hours (Table) 10/25/17 10/25/17 Range/Units 07:10 07:10 RBC 3.23 L (3.80-5.40) m/uL Hgb 10.0 L (11.4-16.0) gm/dL Hct 30.4 L (34.0-46.0) % Chloride 112 H (98-107) mmol/L Carbon Dioxide 21 L (22-30) mmol/L BUN 5 L (7-17) mg/dL Creatinine 0.41 L (0.52-1.04) mg/dL Glucose 69 L (74-99) mg/dL Calcium 7.7 L (8.4-10.2) mg/dL Microbiology - Last 24 Hours (Table) 10/23/17 14:14 Group A Strep Throat Culture - Final Throat 10/23/17 04:56 Blood Culture - Preliminary Blood No Growth after 48 hours 10/23/17 14:15 Blood Culture - Preliminary Blood No Growth after 24 hours Assessment and Plan Assessment: Impression: #1 Acute right upper lobe community-acquired pneumonia. Influenza A and B negative. Rapid strep negative. Strep culture no growth. Blood cultures no growth. Legionella antigen pending #2 32 weeks gestation. Being monitored in labor and delivery. #3 History of nephrolithiasis and frequent urinary tract infections. Urinalysis today negative. #4 History of bowel resection. #5 Former smoker. #6 Former marijuana use. Plan: The patient's case was reviewed and discussed with Dr. Chaney. The patient is improved today as compared to yesterday. We will continue with her current antibiotics for community-acquired pneumonia including ceftriaxone and azithromycin. Continue bronchodilators. Plan for probable discharge in the a.m. She'll be placed on oral Augmentin. We will continue to follow make further recommendations based on her clinical status. I, the cosigning physician, performed a history & physical examination of the patient. Lungs sounds with crackles in the right upper chest. Maintaining good O2 saturations in the 90s on room air. I discussed the assessment and plan of care with my nurse practitioner, Dasha Enriquez. I attest to the above consultation as dictated by her.
--- NOTE | 2017-10-25 23:33 | P.PN ---
Subjective Progress Note Date: 10/25/17 27-year-old female who relates to a history of 1 prior completed , is at 32 weeks and doing well, following with a dietitian and her care. She relates that she's been on some family members that had strep throat and at work a co worker had walking pneumonia. the patient relates that she suddenly became somewhat ill she did have the sensation of fever but did not take her temperature, she definitely had some chills and sweats at times especially when she took Tylenol. She relates that she developed significant cough without much sputum production. The cough was unremitting and started to give her significant right-sided pleuritic chest pain. The coughing caused her to have a change in her vocal quality. Because she felt so poorly she was directed to the hospital for evaluation. Evaluation of the fetus showed no acute difficulties. The patient has now been admitted for evaluation. She did undergo a computed tomography scan with concerns to pulmonary emboli because of her severe pleuritic chest pain, shortness of breath. There was no evidence of any pulmonary embolus however right upper lobe pneumonia was found. The patient subsequently has been admitted, receiving breathing treatments fluids and antibiotic therapy. Because of her pneumonia the infectious diseases consultation was requested. The patient does relate a history of smoking stopping within the last couple of months. Objective - Vital Signs Vital signs: Vital Signs Temp 98.1 F 10/25/17 15:43 Pulse 88 10/25/17 19:59 Resp 16 10/25/17 15:43 BP 86/48 10/25/17 15:43 Pulse Ox 95 10/25/17 15:42 Intake & Output 10/25/17 10/25/17 10/26/17 06:59 18:59 06:59 Intake Total 1200 400 Balance 1200 400 Intake: Oral 1200 400 Other: # Voids 2 4 - Exam 27-year-old woman who appears about her stated age. 32 weeks of as noted, she. He is more comfortable now that she has been in multiple hours. HEENT: Anicteric conjunctiva are pink and moist nasal mucosa grossly intact without significant lesions, there is no thrush. Neck: The neck is supple without significant lymphadenopathy or thyromegaly. Lungs: Symmetrical air entry with evidence of improved air exchange only rare wheezes are heard no bronchial sounds Heart: Regular rate and rhythm with an audible S1-S2, no S3 no S4. There is no significant murmur click or rub, PMI was nondisplaced. Abdomen: 32 weeks , Positive bowel sounds soft and nontender without palpable masses or organomegaly. There was no guarding or rebound. Extremities: The upper extremities have excellent pulses they are symmetric, no significant petechiae or telangiectasia. No splinter hemorrhages were noted. The lower extremities are free from significant edema. The peripheral pulses were 2+ and symmetric. Neuro: Awake alert oriented to person place and time. There are no acute new gross focal sensory motor deficits. - Labs CBC & Chem 7: 10/25/17 07:10 10/25/17 07:10 Labs: Abnormal Lab Results - Last 24 Hours (Table) 10/25/17 10/25/17 Range/Units 07:10 07:10 RBC 3.23 L (3.80-5.40) m/uL Hgb 10.0 L (11.4-16.0) gm/dL Hct 30.4 L (34.0-46.0) % Chloride 112 H (98-107) mmol/L Carbon Dioxide 21 L (22-30) mmol/L BUN 5 L (7-17) mg/dL Creatinine 0.41 L (0.52-1.04) mg/dL Glucose 69 L (74-99) mg/dL Calcium 7.7 L (8.4-10.2) mg/dL Microbiology - Last 24 Hours (Table) 10/23/17 14:15 Blood Culture - Preliminary Blood No Growth after 48 hours 10/23/17 14:14 Group A Strep Throat Culture - Final Throat 10/23/17 04:56 Blood Culture - Preliminary Blood No Growth after 48 hours Laboratory Results WBC 7.4 k/uL (3.8-10.6) 10/25/17 07:10 RBC 3.23 m/uL (3.80-5.40) L 10/25/17 07:10 Hgb 10.0 gm/dL (11.4-16.0) L 10/25/17 07:10 Hct 30.4 % (34.0-46.0) L 10/25/17 07:10 MCV 94.1 fL (80.0-100.0) 10/25/17 07:10 MCH 30.8 pg (25.0-35.0) 10/25/17 07:10 MCHC 32.8 g/dL (31.0-37.0) 10/25/17 07:10 RDW 13.0 % (11.5-15.5) 10/25/17 07:10 Plt Count 331 k/uL (150-450) 10/25/17 07:10 Neutrophils % 75 % 10/25/17 07:10 Lymphocytes % 15 % 10/25/17 07:10 Monocytes % 6 % 10/25/17 07:10 Eosinophils % 2 % 10/25/17 07:10 Basophils % 0 % 10/25/17 07:10 Neutrophils # 5.6 k/uL (1.3-7.7) 10/25/17 07:10 Lymphocytes # 1.1 k/uL (1.0-4.8) 10/25/17 07:10 Monocytes # 0.5 k/uL (0-1.0) 10/25/17 07:10 Eosinophils # 0.2 k/uL (0-0.7) 10/25/17 07:10 Basophils # 0.0 k/uL (0-0.2) 10/25/17 07:10 D-Dimer 2.01 mg/L FEU (<0.60) H 10/23/17 03:26 Sodium 137 mmol/L (137-145) 10/25/17 07:10 Potassium 3.7 mmol/L (3.5-5.1) 10/25/17 07:10 Chloride 112 mmol/L (98-107) H 10/25/17 07:10 Carbon Dioxide 21 mmol/L (22-30) L 10/25/17 07:10 Anion Gap 4 mmol/L 10/25/17 07:10 BUN 5 mg/dL (7-17) L 10/25/17 07:10 Creatinine 0.41 mg/dL (0.52-1.04) L 10/25/17 07:10 Est GFR (CKD-EPI)AfAm >90 (>60 ml/min/1.73 sqM) 10/25/17 07:10 Est GFR (CKD-EPI)NonAf >90 (>60 ml/min/1.73 sqM) 10/25/17 07:10 Glucose 69 mg/dL (74-99) L 10/25/17 07:10 Uric Acid 3.3 mg/dL (3.7-7.4) L 10/23/17 02:52 Calcium 7.7 mg/dL (8.4-10.2) L 10/25/17 07:10 Total Bilirubin 0.4 mg/dL (0.2-1.3) 10/23/17 02:52 AST 20 U/L (14-36) 10/23/17 02:52 ALT 27 U/L (9-52) 10/23/17 02:52 Alkaline Phosphatase 96 U/L (38-126) 10/23/17 02:52 Total Protein 6.0 g/dL (6.3-8.2) L 10/23/17 02:52 Albumin 2.8 g/dL (3.5-5.0) L 10/23/17 02:52 Urine Color Light Yellow 10/23/17 02:52 Urine Appearance Clear (Clear) 10/23/17 02:52 Urine pH 7.5 (5.0-8.0) 10/23/17 02:52 Ur Specific [place] 1.007 (1.001-1.035) 10/23/17 02:52 Urine Protein Negative (Negative) 10/23/17 02:52 Urine Glucose (UA) Negative (Negative) 10/23/17 02:52 Urine Ketones Negative (Negative) 10/23/17 02:52 Urine Blood Negative (Negative) 10/23/17 02:52 Urine Nitrite Negative (Negative) 10/23/17 02:52 Urine Bilirubin Negative (Negative) 10/23/17 02:52 Urine Urobilinogen <2.0 mg/dL (<2.0) 10/23/17 02:52 Ur Leukocyte Esterase Negative (Negative) 10/23/17 02:52 Influenza Type A RNA Not Detected (Not Detectd) 10/23/17 14:14 Influenza Type B (PCR) Not Detected (Not Detectd) 10/23/17 14:14 Group A Strep Rapid Negative (Negative) 10/23/17 14:14 Microbiology 10/23/17 14:15 Blood Blood Culture - Preliminary No Growth after 48 hours 10/23/17 14:14 Throat Group A Strep Throat Culture - Final 10/23/17 04:56 Blood Blood Culture - Preliminary No Growth after 48 hours Assessment and Plan (1) 32 weeks gestation of Current Visit: Yes Status: Acute Code(s): Z3A.32 - 32 WEEKS GESTATION OF SNOMED Code(s): 0417491 (2) Right upper lobe pneumonia Narrative/Plan: Pleasant 27-year-old female who does have a history of tobacco smoking stopping several months ago and is noted is 32 weeks into the became acutely ill and has now been admitted. CT angiogram reveal evidence of the distinct right upper lobe pneumonia. Since admission with respiratory treatments, antibiotics, and fluids she is doing considerably better. She was able to rest for multiple hours as afternoon which has not been able to do for the last few days because of her severe coughing. She is not having much sputum production. They do have a pool at the home and she relates that she her son did get in the pool and move around the sediment that had fallen to the bottom open the filter could pick it up. However once they had done this to realize the water was very cloudy and they did a shock treatment and she has not been swimming since that time last week. The son has not been ill. She does work with the general public. In streptococcus pneumonia remains most common pathogen, however with the state of relatively immunocompromised the fact that she is a smoker she is at risk of mycoplasma as well as Legionella. Testing is requested. Antibiotic therapy with ceftriaxone and azithromycin will be continued for now with ongoing supportive care and she was monitored in cultures reviewed. 10/25/2017 patient continues to have improvement. Testing is still pending for mycoplasma and Legionella. Patient is tolerating antibiotic therapy well and is not having any new complaints. appetite has been adequate. Nursing staff relates to no difficulties with the fetus. this patient was ready for discharge home likely in the morning will complete her course of antibiotic therapy with azithromycin since her concerns to atypical pathogens as well as Streptococcus pneumoniae causing her current illness. Current Visit: Yes Status: Acute Code(s): J18.1 - LOBAR PNEUMONIA, UNSPECIFIED ORGANISM SNOMED Code(s): 312756558
[2017-10-26] MEDS: HYDROcodone/APAP 5-325MG 1 EACH TAB PO PRN ×2 (03:03→08:19)
[2017-10-26] MEDS: SODIUM CHLORIDE 0.9% 1,000 ML IV SCH ×2 (03:05→10:09)
[2017-10-26 06:10] LABS: Basophils % (A) 0 %; Eosinophils # (A) 0.2 k/uL (0-0.7); Eosinophils % (A) 2 %; HCT 31.1 % (34.0-46.0); HGB 10.4 gm/dL (11.4-16.0); Lymphocytes # (A) 1.4 k/uL (1.0-4.8); Lymphocytes % (A) 16 %; MCH 31.7 pg (25.0-35.0); MCHC 33.6 g/dL (31.0-37.0); MCV 94.5 fL (80.0-100.0); Mean Platelet Volume 6.5; Monocytes # (A) 0.5 k/uL (0-1.0); Monocytes % (A) 6 %; Neutrophils # (A) 6.5 k/uL (1.3-7.7); Neutrophils % (A) 74 %; Platelet Count 371 k/uL (150-450); RBC 3.29 m/uL (3.80-5.40); RDW 12.9 % (11.5-15.5); WBC 8.8 k/uL (3.8-10.6)
[2017-10-26 06:36] LABS: Anion Gap 4 mmol/L; Blood Urea Nitrogen 6 mg/dL (7-17); Calcium 8.2 mg/dL (8.4-10.2); Carbon Dioxide 24 mmol/L (22-30); Chloride 110 mmol/L (98-107); Glucose 75 mg/dL (74-99); Potassium 4.2 mmol/L (3.5-5.1); Sodium 138 mmol/L (137-145)
[2017-10-26 07:00] LABS: Mycoplasma IgM Antibody 0.48 INDEX (<=0.90)
--- NOTE | 2017-10-26 07:10 | P.PN ---
Progress Note - Text Progress Note Date: 10/26/17 Hospital day #4. Patient is resting without new complaints. Vital signs are stable she is afebrile. Patient's been followed by medicine for pneumonia and most likely will be discharged home today. Patient can follow up with Dr. Moffett next Sunday as scheduled for an OB visit and ultrasound.
[2017-10-26] MEDS: cefTRIAXone IN SWFI 1,000 MG/10 ML SYRINGE IVP SCH (08:01)
[2017-10-26 08:22] VITALS: BP 104/62; PULSE 74; RESP 18; TEMP 97.7
[2017-10-26] MEDS ORDERED: AZITHROMYCIN 500 MG TAB PO SCH (09:00)
[2017-10-26] MEDS: ALBUTEROL NEBULIZED 2.5 MG/3 ML INHALATION SCH ×2 (10:50→11:25)
--- NOTE | 2017-10-26 13:32 | P.PN ---
Subjective Progress Note Date: 10/26/17 Principal diagnosis: Right upper lobe pneumonia This a very pleasant 27-year-old female patient who has a previous history of nephrolithiasis and multiple urinary tract infections. She does have a previous history of smoking along with marijuana use. None since . She is at 32 weeks gestation tomorrow. She presented here to the emergency room today with complaints of increasing shortness of breath, cough and congestion. She had a sharp stabbing pain in her right rib cage. She was seen initially in labor and delivery and the baby was cleared and then subsequently sent to the emergency room. CT scan was performed and ruled out pulmonary embolism which revealed no evidence of PE. Dopplers of the lower extremities ruled out DVT. She was noted however to have a significant right upper lobe pneumonia. There is also noted a few mediastinal lymph nodes consistent with reactive adenopathy. She had been having headaches and sinus congestion along with a sore throat several days before her arrival. She states she does have a coworker who has "walking pneumonia" and she also states her boyfriend's daughter who had strep throat recently. She is seen today in consultation in the labor and delivery department. She is awake and alert in no acute distress. She states she is breathing a little easier today as compared to yesterday. She's been afebrile. Maintaining good O2 saturations in the mid to upper 90s on room air. She's been hemodynamically stable. White count 9.6. Hemoglobin 10.6. Creatinine 0.47. Influenza A and B screens negative. Group A rapid strep negative. Urinalysis negative. She has been initiated on antibiotics in the form of ceftriaxone and azithromycin. The patient is seen again today 10/24/2017 in the labor and delivery unit. She is currently awake and alert in no acute distress. He is maintaining good O2 saturations in the 90s on room air. She still has a loose nonproductive cough. She is still having quite a bit of a right lower chest discomfort most likely from coughing and pulled muscle. CAT scan was consistent with a right upper lobe pneumonia. She has no pain in the right upper chest. Blood cultures and group A strep culture is still pending. She remains on antibiotics in form of ceftriaxone and azithromycin. White count 9.2. Hemoglobin 10.2. Creatinine 0.43. The patient is seen again today 10/25/2017 in follow-up in the labor and delivery unit. She is doing much better pulmonary-lozano. She denies any worsening shortness of breath, cough or congestion. Her right-sided chest wall pain has subsided. Blood and throat cultures are negative. White count 7.4. Hemoglobin 10.0. Creatinine 0.41. She is maintaining good O2 saturations in the 90s on room air. She's afebrile. The patient is seen again today 10/26/2017 in follow-up in the labor and delivery unit. She is currently sitting up in bed. She was doing quite a bit better today as compared to yesterday. Nearly back to her baseline. She has a loose nonproductive cough. Maintaining good O2 saturations in the 90s on room air. She is anxious to go home. Objective - Vital Signs Vital signs: Vital Signs Temp 97.7 F 10/26/17 08:00 Pulse 74 10/26/17 08:00 Resp 18 10/26/17 08:00 BP 104/62 10/26/17 08:00 Pulse Ox 94 L 10/26/17 08:00 Intake & Output 10/25/17 10/26/17 10/26/17 18:59 06:59 18:59 Intake Total 400 300 Balance 400 300 Intake: IV 300 Sodium Chloride 0.9% 1, 300 000 ml @ 100 mls/hr IV . Q10H ASHLEY Rx#:[id number] Oral 400 Other: Voiding Method Toilet # Voids 4 1 - Exam GENERAL EXAM: Alert, active, fairly comfortable in no apparent distress. HEAD: Normocephalic. EYES: Normal reaction of pupils, equal size. NOSE: Clear with pink turbinates. THROAT: No erythema or exudates. NECK: No masses, no JVD. CHEST: No chest wall deformity. Minimal right-sided chest wall pain. LUNGS: Equal air entry with faint crackles in the right upper chest. CVS: S1 and S2 normal with no audible murmur, regular rhythm. ABDOMEN: Gravid uterus. No hepatosplenomegaly, normal bowel sounds, no guarding or rigidity. SPINE: No scoliosis or deformity SKIN: No rashes CENTRAL NERVOUS SYSTEM: No focal deficits, tone is normal in all 4 extremities. EXTREMITIES: There is no peripheral edema. No clubbing, no cyanosis. Peripheral pulses are intact. - Labs CBC & Chem 7: 10/26/17 05:52 10/26/17 05:52 Labs: Abnormal Lab Results - Last 24 Hours (Table) 10/24/17 10/26/17 10/26/17 Range/Units 06:56 05:52 05:52 RBC 3.29 L (3.80-5.40) m/uL Hgb 10.4 L (11.4-16.0) gm/dL Hct 31.1 L (34.0-46.0) % Chloride 110 H (98-107) mmol/L BUN 6 L (7-17) mg/dL Creatinine 0.40 L (0.52-1.04) mg/dL Calcium 8.2 L (8.4-10.2) mg/dL Mycoplasma pneumon IgG 1.34 H (<=0.90) INDEX Microbiology - Last 24 Hours (Table) 10/23/17 04:56 Blood Culture - Preliminary Blood No Growth after 72 hours 10/23/17 14:15 Blood Culture - Preliminary Blood No Growth after 48 hours 10/23/17 14:14 Group A Strep Throat Culture - Final Throat Assessment and Plan Assessment: Impression: #1 Acute right upper lobe community-acquired pneumonia. Influenza A and B negative. Rapid strep negative. Strep culture no growth. Blood cultures no growth. Legionella antigen pending #2 32 weeks gestation. Being monitored in labor and delivery. #3 History of nephrolithiasis and frequent urinary tract infections. Urinalysis today negative. #4 History of bowel resection. #5 Former smoker. #6 Former marijuana use. Plan: The patient was seen and evaluated by Dr. Chaney. She is improved and cleared for discharge from the pulmonary standpoint. She'll go home on azithromycin 500 mg daily 5 days along with Ceftin 500 mg twice a day 5 more days. She can follow-up in our office in 1-2 weeks' time. She is however encouraged to call sooner with any recurrence of symptoms or other questions or concerns. I, the cosigning physician, performed a history & physical examination of the patient. Lungs sounds with crackles in the right upper chest. Maintaining good O2 saturations in the 90s on room air. I discussed the assessment and plan of care with my nurse practitioner, Dasha Enriquez. I attest to the above consultation as dictated by her.
== END 2017-10-26 13:05 | disposition home or self-care (01) | DRG 781 ==
LOC: EC 00:51 → 4FBP 04:29
PROVIDERS: ADMIT Hospitalist; ATTEND Hospitalist
DX: O99.513 Diseases of the respiratory system complicating pregnancy, third trimester (principal); J18.9 Pneumonia, unspecified organism; Z3A.31 31 weeks gestation of pregnancy; O99.333 Smoking (tobacco) complicating pregnancy, third trimester; F17.200 Nicotine dependence, unspecified, uncomplicated; Z3A.32 32 weeks gestation of pregnancy; Z87.440 Personal history of urinary (tract) infections; Z87.442 Personal history of urinary calculi; Z90.49 Acquired absence of other specified parts of digestive tract; Z88.1 Allergy status to other antibiotic agents; Z88.0 Allergy status to penicillin
CPT/HCPCS: 36415; 71275; 80048; 80053; 81003; 84550; 85025; 85379; 86738; 87040; 87081; 87430; 87449; 87502; 93970; 94640

== ENCOUNTER 2017-12-21 07:07 | Inpatient (IN) | payer OTHER ==
[2017-12-24] MEDS ORDERED: TERBUTALINE 1 MG/ML VIAL SQ PRN (07:01)
[2017-12-24] MEDS ORDERED: CARBOPROST TROMETHAMINE 250 MCG/ML 1 ML AMP IM PRN (07:01)
[2017-12-24] MEDS ORDERED: OXYTOCIN 10 UNIT/ML 1 ML VIAL IM PRN (07:01)
[2017-12-24] MEDS ORDERED: LIDOCAINE 0.5% (PF) 5 MG/ML (50 ML SDV) SQ PRN (07:01)
[2017-12-24] MEDS ORDERED: METHYLERGONOVINE 0.2 MG/ML 1 ML AMP IM PRN (07:01)
[2017-12-24 07:14] LABS: Basophils % (A) 0 %; Eosinophils # (A) 0.1 k/uL (0-0.7); Eosinophils % (A) 1 %; HCT 36.9 % (34.0-46.0); HGB 12.3 gm/dL (11.4-16.0); Lymphocytes # (A) 1.9 k/uL (1.0-4.8); Lymphocytes % (A) 25 %; MCH 31.1 pg (25.0-35.0); MCHC 33.3 g/dL (31.0-37.0); MCV 93.4 fL (80.0-100.0); Mean Platelet Volume 6.7; Monocytes # (A) 0.5 k/uL (0-1.0); Monocytes % (A) 6 %; Neutrophils # (A) 4.9 k/uL (1.3-7.7); Neutrophils % (A) 65 %; Platelet Count 277 k/uL (150-450); RBC 3.95 m/uL (3.80-5.40); WBC 7.5 k/uL (3.8-10.6)
[2017-12-24] MEDS ORDERED: OXYTOCIN 20 UNITS/1000 ML NS 1,000 ML IV SCH (07:15)
[2017-12-24] MEDS: LACTATED RINGERS 1,000 ML IV SCH ×3 (07:16→11:10)
[2017-12-24 07:33] VITALS: BMI 28.4
[2017-12-24] MEDS ORDERED: ROPIVACAINE 100 MG, fentaNYL (PF) 200 MCG in SODIUM CHLORIDE 0.9% 76 ML EPIDURAL ONE (10:17)
[2017-12-24] MEDS ORDERED: WITCH HAZEL 1 EACH MED..PAD TOPICAL PRN (13:18)
[2017-12-24] MEDS ORDERED: BENZOCAINE/MENTHOL SPRAY 1 GM/SPRAY AEROSOL TOPICAL PRN (13:18)
[2017-12-24] MEDS ORDERED: ZOLPIDEM 5 MG TAB PO PRN (13:18)
[2017-12-24] MEDS ORDERED: HYDROCORTISONE 2.5% RECTAL CREAM 30 GM TUBE RECTAL PRN (13:18)
[2017-12-24] MEDS ORDERED: diphenhydrAMINE 50 MG CAP PO PRN (13:18)
[2017-12-24] MEDS ORDERED: diphenhydrAMINE 50 MG/ML 1 ML VIAL IVP PRN ×2 (13:18)
[2017-12-24] MEDS ORDERED: diphenhydrAMINE 25 MG CAP PO PRN (13:18)
[2017-12-24] MEDS ORDERED: SIMETHICONE 80 MG CHEWABLE PO PRN (13:18)
[2017-12-24] MEDS ORDERED: LANOLIN CREAM 5 GM TUBE TOPICAL PRN (13:18)
--- NOTE | 2017-12-24 13:21 | P.HPOB ---
History of Present Illness H&P Date: 12/24/17 Chief Complaint: Intrauterine at 40 weeks induction of labor Tonia is a 27-year-old G 7 P1 at 40 weeks gestation arise for induction of labor. Her course was unremarkable, she did see maternal medicine early in the due to past history but did not pertain to see them following that initial visit. She have a history of the LEEP and her cervix is a band noted but her cervix is soft I expect she will dilate without difficulty. Prior unremarkable. She does have a personal history of gastroschisis minutes when she was seen by M. No other significant issues this time. Pertinent labs do include A+ blood type, Rh antibody was negative, rubella was immune, hepatitis B surface antigen and GBS were both negative. Past Medical History Past Medical History: No Reported History Additional Past Medical History / Comment(s): kidney stones,multiple uti History of Any Multi-Drug Resistant Organisms: None Reported Past Surgical History: Bowel Resection Additional Past Surgical History / Comment(s): d&c, LEAP, gastroscesis at Past Anesthesia/Blood Transfusion Reactions: No Reported Reaction Past Psychological History: No Psychological Hx Reported Additional Psychological History / Comment(s): Lives with her boyfriend he is caring for their 10-year-old son. Is no tobacco smoker stopping several months ago. No alcohol use. No recent travel. No experience. 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 Smoking Status: Former smoker Past Alcohol Use History: None Reported Past Drug Use History: Marijuana - Past Family History Mother Family Medical History: Osteoarthritis (OA) Additional Family Medical History / Comment(s): Degenerative disk disease Medications and Allergies Home Medications Medication Instructions Recorded Confirmed Type Pnv,Calcium 72/Iron/Folic Acid 1 each PO DAILY 10/19/17 12/24/17 History [ Plus Tablet] Azithromycin [Zithromax] 500 mg PO DAILY #3 tab 10/25/17 12/24/17 Rx Allergies Allergy/AdvReac Type Severity Reaction Status Date / Time amoxicillin [Amoxicillin] Allergy Rash/Hives Verified 10/23/17 00:12 Penicillins Allergy Rash/Hives Verified 10/23/17 00:12 clindamycin AdvReac Unknown Verified 10/23/17 00:13 Exam Osteopathic Statement: *. No significant issues noted on an osteopathic structural exam other than those noted in the History and Physical/Consult. Vital Signs Temp Pulse Resp BP 12/24/17 13:15 76 16 118/75 12/24/17 13:00 71 16 138/69 12/24/17 12:45 75 18 148/70 12/24/17 07:25 97 F L 65 16 130/80 Intake and Output 12/23/17 12/24/17 12/24/17 22:59 06:59 14:59 Other: Weight 84.822 kg 84.822 kg - OBG Physical Exam Breast: both: normal (no masses) Abdomen: bowel sounds normal, no diffuse tenderness, no bruit present, no guarding noted, no hepatomegaly, no splenomegaly, no mass Vulva: both: normal Vagina: normal moisture, no discharge Cervix: no lesion, no discharge Uterus: normal size, normal contour Adnexa: both: normal Anus/Rectum: normal perianal skin, no rectal mass, no hemorrhoids, heme negative Results Result Diagrams: 12/24/17 07:00
--- NOTE | 2017-12-24 13:22 | P.PROBDLV ---
Vaginal Delivery Note - . Vaginal Delivery Note: Patient progressed complete and pushing with spontaneous vaginal delivery of a viable female over an intact perineum. Falling deliver the head anterior posterior shoulders were delivered gentle downward upper traction followed by the remainder the baby. Mouth nares were then bulb suctioned and baby was placed mother's abdomen where the umbilical cord was allowed to pulsate for 30-40 seconds prior to clamping and cutting. Nursery personnel was present to assume care. Placenta was then delivered delivered intact Pitocin was added to the IV. scores were 9 and 9 at one and 5 minutes respectively and weight was 8 lbs. 10 oz. Both mother and baby are stable following delivery.
[2017-12-24] MEDS: IBUPROFEN 600 MG TAB PO PRN (20:39)
[2017-12-24] MEDS: SENNOSIDES-DOCUSATE SODIUM 1 EACH TAB PO SCH (22:05)
[2017-12-25] MEDS: ACETAMINOPHEN TAB 325 MG TAB PO PRN ×2 (00:29→13:20)
[2017-12-25] MEDS: IBUPROFEN 600 MG TAB PO PRN (08:12)
--- NOTE | 2017-12-25 08:46 | P.DS ---
Providers Date of admission: 12/24/17 06:44 Expected date of discharge: 12/25/17 Attending physician: Alverto Moffett Primary care physician: Stated None Pertinent Studies: Tonia is doing very well day 1. She is ambulating, voiding, and she is tolerating her diet. She voices no complaints. Vital signs are stable and afebrile. Heart regular, lungs clear, extremities without pain. Prescription for Motrin was forwarded to the pharmacy. All of the instructions were reviewed with the patient and all questions are answered for her prior to discharge. She'll follow up with me in 6 weeks. Patient Condition at Discharge: Good Plan - Discharge Summary New Discharge Prescriptions: New Ibuprofen [Motrin] 600 mg PO Q6HR PRN #30 tab PRN Reason: Pain No Action Pnv,Calcium 72/Iron/Folic Acid [ Plus Tablet] 1 each PO DAILY Azithromycin [Zithromax] 500 mg PO DAILY #3 tab Discharge Medication List Pnv,Calcium 72/Iron/Folic Acid [ Plus Tablet] 1 each PO DAILY 10/19/17 [ History] Azithromycin [Zithromax] 500 mg PO DAILY #3 tab 10/25/17 [Rx] Ibuprofen [Motrin] 600 mg PO Q6HR PRN #30 tab 12/25/17 [Rx] Follow up Appointment(s)/Referral(s): Alverto Moffett DO [Doctor of Osteopathic Medicine] - 6 Weeks Activity/Diet/Wound Care/Special Instructions: Heavy lifting, limit stairs and driving, and pelvic rest. If any high temperatures, heavy bleeding, or severe pain call my office Discharge Disposition: HOME SELF-CARE
[2017-12-25] MEDS: SENNOSIDES-DOCUSATE SODIUM 1 EACH TAB PO SCH (12:51)
[2017-12-25 13:06] VITALS: BP 98/66; PULSE 68; RESP 16
[2017-12-25 13:10] VITALS: TEMP 97.1
== END 2017-12-25 13:30 | disposition home or self-care (01) | DRG 807 ==
LOC: 4FBP 12-24 06:44
PROVIDERS: ADMIT Obstetrics & Gynecology; ATTEND Obstetrics & Gynecology
PROC: 00HU33Z Insertion of Infusion Device into Spinal Canal, Percutaneous Approach (ICD-10-PCS; principal; 2017-12-24)
PROC: 10E0XZZ Delivery of Products of Conception, External Approach (ICD-10-PCS; principal; 2017-12-24)
PROC: 3E0R3NZ Introduction of Analgesics, Hypnotics, Sedatives into Spinal Canal, Percutaneous Approach (ICD-10-PCS; principal; 2017-12-24)
PROC: 3E033VJ Introduction of Other Hormone into Peripheral Vein, Percutaneous Approach (ICD-10-PCS; principal; 2017-12-24)
DX: O48.0 Post-term pregnancy (principal); Z37.0 Single live birth; Z3A.40 40 weeks gestation of pregnancy; Z87.442 Personal history of urinary calculi; Z87.738 Personal history of other specified (corrected) congenital malformations of digestive system; Z87.891 Personal history of nicotine dependence; Z88.1 Allergy status to other antibiotic agents; Z88.0 Allergy status to penicillin
CPT/HCPCS: 85025; 86850; 86900; 86901

== ENCOUNTER → 2020-06-01 | Outpatient (CLI) | payer OTHER ==
--- NOTE | 2020-06-01 14:45 | US ---
EXAMINATION TYPE: Ultrasound OB <= 14 week fetus DATE OF EXAM: 06/01/2020 9:31 AM COMPARISON: NONE CLINICAL HISTORY: 29-year-old female Z36 confirm dates. Early OB, cramping, dating, A5 EXAM PERFORMED: [facility] FINDINGS: EXAM MEASUREMENTS: GESTATIONAL AGE / DATING Physician Established: Not yet established Dates by LMP: (12 weeks/6 days) EDC: 12/08/2020 Dates by First Scan: No previous this is first scan Dates by Current Scan for: (12 weeks/4 days) EDC: 12/10/2020 MATERNAL ANATOMY Uterus: 12.7 x 10.8 x 11.0cm Right Ovary: not seen Left Ovary: 3.7 x 2.6 x 2.0cm Post CDS / Adnexa: wnl Presence of free fluid: no Presence of corpus luteal cyst: not seen Presence of subchorionic bleed: no GESTATION / SURVEY CRL: 6.5 (12 weeks/6 days) MSD: wnl The expanding amnion is visualized. Heart Rate: 140 bpm Rhythm: Normal IUP: Viable IUP Date of LMP: 03/05/2020 IMPRESSION: 1. Single live intrauterine with estimated gestational age of 4 weeks 6 days by LMP. Curren t ultrasound biometry is concordant (12 weeks 4 days by CRL). 2. Unable to visualize the right ovary. 3. Complete survey recommended at 18-20 weeks.
== END | disposition home or self-care (01) ==
LOC: RADUSWWP 09:01
PROVIDERS: ATTEND Obstetrics & Gynecology
DX: Z36.87 Encounter for antenatal screening for uncertain dates (principal); O26.891 Other specified pregnancy related conditions, first trimester; Z3A.12 12 weeks gestation of pregnancy
CPT/HCPCS: 76801

== ENCOUNTER 2020-12-08 06:00 | Inpatient (IN) | payer OTHER ==
[2020-12-08] MEDS ORDERED: LIDOCAINE 1% (10MG/ML) FOR IV START INTRADERMA PRN (06:35)
[2020-12-08] MEDS ORDERED: METHYLERGONOVINE 0.2 MG/ML 1 ML AMP IM PRN (06:43)
[2020-12-08] MEDS ORDERED: LIDOCAINE 0.5% (PF) 5 MG/ML (50 ML SDV) SQ PRN (06:43)
[2020-12-08] MEDS ORDERED: CARBOPROST TROMETHAMINE 250 MCG/ML 1 ML AMP IM PRN (06:43)
[2020-12-08] MEDS ORDERED: TERBUTALINE 1 MG/ML VIAL SQ PRN (06:43)
[2020-12-08] MEDS ORDERED: OXYTOCIN 10 UNIT/ML 1 ML VIAL IM PRN (06:43)
[2020-12-08 06:59] LABS: Basophils % (A) 0 %; Eosinophils # (A) 0.1 k/uL (0-0.7); Eosinophils % (A) 1 %; HCT 38.3 % (34.0-46.0); HGB 12.9 gm/dL (11.4-16.0); Lymphocytes # (A) 1.8 k/uL (1.0-4.8); Lymphocytes % (A) 27 %; MCH 32.1 pg (25.0-35.0); MCHC 33.8 g/dL (31.0-37.0); MCV 94.9 fL (80.0-100.0); Mean Platelet Volume 7.2; Monocytes # (A) 0.4 k/uL (0-1.0); Monocytes % (A) 6 %; Neutrophils # (A) 4.2 k/uL (1.3-7.7); Neutrophils % (A) 64 %; Platelet Count 235 k/uL (150-450); RBC 4.03 m/uL (3.80-5.40); RDW 12.9 % (11.5-15.5); WBC 6.5 k/uL (3.8-10.6)
[2020-12-08] MEDS: LACTATED RINGERS 1,000 ML IV SCH ×3 (07:00→21:59)
[2020-12-08] MEDS ORDERED: OXYTOCIN 30 UNITS/500 ML NS 30 UNIT in SALINE 1 500ML.BAG IV SCH (07:00)
--- NOTE | 2020-12-08 08:28 | P.HPOB ---
History of Present Illness H&P Date: 12/08/20 Chief Complaint: Uterine at 39 weeks 5 days gestation: Induction of labor Tonia is a 30-year-old at 39 weeks 5 days gestation arise for induction of labor. Pertinent labs fluid A+ blood type Rh and it was negative, rubella is immune, hepatitis B surface antigen negative as is groupie strep and HIV. Her course was somewhat limited with multiple gaps in care over 7 or so weeks. But she did not have any significant problems. She is a tobacco abuser and did use THC early in but states that she had quit. She had a tooth abscess for which she was prescribed and about X and referred to dentistry. Currently she is dilated to 3 cm and approximately 70% effaced and - 3 station. We'll plan artificial rupture membranes once epidural is placed and she is very uncomfortable this time. She is annette every 3-5 minutes and we had a category 1 tracing is reactive with baseline in the 120s to 130s. She is aware there is a risk of failure with need for section with any induction but has had 2 successful vaginal deliveries in the past so anticipate spontaneous vaginal delivery and epidural for pain management. Past Medical History Past Medical History: No Reported History Additional Past Medical History / Comment(s): kidney stones,multiple uti History of Any Multi-Drug Resistant Organisms: None Reported Past Surgical History: Bowel Resection Additional Past Surgical History / Comment(s): d&c, LEAP, gastroscesis at Past Anesthesia/Blood Transfusion Reactions: No Reported Reaction Past Psychological History: No Psychological Hx Reported Additional Psychological History / Comment(s): Lives with her boyfriend he is caring for their 10-year-old son. Is no tobacco smoker stopping several months ago. No alcohol use. No recent travel. No experience. 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 Smoking Status: Never smoker Past Alcohol Use History: None Reported Past Drug Use History: Marijuana - Past Family History Mother History Unknown: Yes Family Medical History: Osteoarthritis (OA) Additional Family Medical History / Comment(s): Degenerative disk disease Medications and Allergies Home Medications Medication Instructions Recorded Confirmed Type Pnv,Calcium 72/Iron/Folic Acid 1 each PO DAILY 10/19/17 12/08/20 History [ Plus Tablet] Allergies Allergy/AdvReac Type Severity Reaction Status Date / Time amoxicillin [Amoxicillin] Allergy Rash/Hives Verified 12/08/20 06:35 Penicillins Allergy Rash/Hives Verified 12/08/20 06:35 clindamycin AdvReac Unknown Verified 12/08/20 06:35 Exam Osteopathic Statement: *. No significant issues noted on an osteopathic structural exam other than those noted in the History and Physical/Consult. Vital Signs Temp Pulse Resp BP 12/08/20 07:20 97.8 F 68 16 104/71 Intake and Output 12/07/20 12/08/20 12/08/20 22:59 06:59 14:59 Other: Weight 89.811 kg 89.811 kg - OBG Physical Exam Breast: both: normal (no masses) Abdomen: bowel sounds normal, no diffuse tenderness, no bruit present, no guarding noted, no hepatomegaly, no splenomegaly, no mass Vulva: both: normal Vagina: normal moisture, no discharge Cervix: no lesion, no discharge Uterus: normal size, normal contour Adnexa: both: normal Anus/Rectum: normal perianal skin, no rectal mass, no hemorrhoids, heme negative Results Result Diagrams: 12/08/20 06:47
[2020-12-08] MEDS ORDERED: ROPIVACAINE 100 MG, fentaNYL (PF). 200 MCG in SODIUM CHLORIDE 0.9% 76 ML EPIDURAL ONE (09:25)
[2020-12-08] MEDS ORDERED: HYDROCORTISONE 2.5% RECTAL CREAM 30 GM TUBE RECTAL PRN (12:04)
[2020-12-08] MEDS ORDERED: diphenhydrAMINE 25 MG CAP PO PRN (12:04)
[2020-12-08] MEDS ORDERED: ACETAMINOPHEN TAB 325 MG TAB PO PRN (12:04)
[2020-12-08] MEDS ORDERED: diphenhydrAMINE 50 MG/ML 1 ML VIAL IVP PRN ×2 (12:04)
[2020-12-08] MEDS ORDERED: diphenhydrAMINE 50 MG CAP PO PRN (12:04)
[2020-12-08] MEDS ORDERED: ZOLPIDEM 5 MG TAB PO PRN (12:04)
[2020-12-08] MEDS ORDERED: LANOLIN CREAM 5 GM TUBE TOPICAL PRN (12:04)
[2020-12-08] MEDS ORDERED: BENZOCAINE/MENTHOL SPRAY 1 GM/SPRAY AEROSOL TOPICAL PRN (12:04)
[2020-12-08] MEDS ORDERED: SIMETHICONE 80 MG CHEWABLE PO PRN (12:04)
--- NOTE | 2020-12-08 12:06 | P.PROBDLV ---
Vaginal Delivery Note - . Vaginal Delivery Note: Tonia progressed to complete and pushing with spontaneous vaginal delivery of a viable male over an intact perineum. Baby was delivered by left occiput anterior position. Once anterior shoulder delivered gentle downward traction was used to obtain delivery of the anterior and then upward traction for the posterior shoulder and the remainder the baby. Mouth nares were then bulb suctioned and baby was placed on mother's abdomen where the umbilical cords left pulsate for 30 seconds prior to clamping and cutting. Nursery personnel was present and assumed care. Placenta was then delivered intact and Pitocin was added to the IV. scores were 9 and 9 at one and 5 minutes respectively and the weight is pending but both mother and baby appear stable
[2020-12-08] MEDS: IBUPROFEN 600 MG TAB PO SCH ×2 (16:29→21:58)
[2020-12-08] MEDS ORDERED: SENNOSIDES-DOCUSATE SODIUM 1 EACH TAB PO SCH (20:00)
[2020-12-09] MEDS: IBUPROFEN 600 MG TAB PO SCH ×2 (01:45→04:43)
[2020-12-09] MEDS: LACTATED RINGERS 1,000 ML IV SCH ×3 (01:46→06:59)
[2020-12-09 04:36] VITALS: RESP 16; TEMP 97.9
--- NOTE | 2020-12-09 08:23 | P.DS ---
Providers Date of admission: 12/08/20 06:25 Expected date of discharge: 12/09/20 Attending physician: Alverto Moffett Primary care physician: Stated None Hospital Course: Tonia is doing very well this morning. Her vital signs are stable and afebrile. Heart regular, lungs clear, extremities without pain. Abdomen soft and uterus is firm. Lochia is reported light. We'll plan discharged home today. Prescription for Motrin has been provided. All questions are answered for this time. Discharge instructions were thoroughly reviewed and she is stable for discharge this time. Patient Condition at Discharge: Good Plan - Discharge Summary New Discharge Prescriptions: New Ibuprofen [Motrin] 600 mg PO Q6HR PRN #30 tab PRN Reason: Pain No Action Pnv,Calcium 72/Iron/Folic Acid [ Plus Tablet] 1 each PO DAILY Discharge Medication List Pnv,Calcium 72/Iron/Folic Acid [ Plus Tablet] 1 each PO DAILY 10/19/17 [History] Ibuprofen [Motrin] 600 mg PO Q6HR PRN #30 tab 12/09/20 [Rx] Follow up Appointment(s)/Referral(s): Alverto Moffett DO [Doctor of Osteopathic Medicine] - 01/26/21 11:00 am Activity/Diet/Wound Care/Special Instructions: No Heavy lifting, and stairs and driving, and pelvic rest. If any high temperatures, heavy bleeding, or severe pain call my office Discharge Disposition: HOME SELF-CARE
[2020-12-09 09:06] VITALS: BP 123/72; PULSE 64
== END 2020-12-09 13:10 | disposition home or self-care (01) | DRG 807 ==
LOC: 4FBP 06:25
PROVIDERS: ADMIT Obstetrics & Gynecology; ATTEND Obstetrics & Gynecology
PROC: 10E0XZZ Delivery of Products of Conception, External Approach (ICD-10-PCS; principal; 2020-12-08)
PROC: 10907ZC Drainage of Amniotic Fluid, Therapeutic from Products of Conception, Via Natural or Artificial Opening (ICD-10-PCS; 2020-12-08)
DX: O99.334 Smoking (tobacco) complicating childbirth (principal); Z37.0 Single live birth; Z87.891 Personal history of nicotine dependence; Z87.442 Personal history of urinary calculi; Z3A.39 39 weeks gestation of pregnancy; F17.200 Nicotine dependence, unspecified, uncomplicated; Z87.440 Personal history of urinary (tract) infections
CPT/HCPCS: 85025; 86850; 86900; 86901

== ENCOUNTER 2024-09-09 13:55 | Emergency (ER) | payer OTHER ==
--- NOTE | 2024-09-09 15:57 | ED ---
General Adult HPI - General Chief complaint: Headache Stated complaint: Migraine, vomiting Time Seen by Provider: 09/09/24 15:23 Source: patient, RN notes reviewed Mode of arrival: ambulatory Limitations: no limitations - History of Present Illness Initial comments: 33-year-old female presents to the emergency department for evaluation of headache. Patient notes that this has been going on for 3 to 4 days. She was seen at outside facility for this recently and had a CT scan and lab work performed. She notes that she was given a migraine cocktail and sent home. She states that since then the pain has continued. She has not been taking anything at home for her symptoms. She denies any recent illness, fever, chills. She does endorse light sensitivity and nausea. - Related Data Home Medications Medication Instructions Recorded Confirmed Vit No.180/Iron/Folic 1 each PO DAILY 10/19/17 12/08/20 [ Plus Vitamin-Mineral] Previous Rx's Medication Instructions Recorded Ibuprofen [Motrin] 600 mg PO Q6HR PRN #30 tab 12/09/20 Allergies Allergy/AdvReac Type Severity Reaction Status Date / Time amoxicillin [Amoxicillin] Allergy Rash/Hives Verified 12/08/20 06:35 Penicillins Allergy Rash/Hives Verified 12/08/20 06:35 clindamycin AdvReac Unknown Verified 12/08/20 06:35 Review of Systems ROS Statement: Those systems with pertinent positive or pertinent negative responses have been documented in the HPI. ROS Other: All systems not noted in ROS Statement are negative. Past Medical History Past Medical History: No Reported History Additional Past Medical History / Comment(s): kidney stones,multiple uti History of Any Multi-Drug Resistant Organisms: None Reported Past Surgical History: Bowel Resection Additional Past Surgical History / Comment(s): d&c, LEAP, gastroscesis at Past Anesthesia/Blood Transfusion Reactions: No Reported Reaction Past Psychological History: No Psychological Hx Reported Smoking Status: Never smoker Past Alcohol Use History: None Reported Past Drug Use History: Marijuana - Past Family History Mother History Unknown: Yes Family Medical History: Osteoarthritis (OA) Additional Family Medical History / Comment(s): Degenerative disk disease General Exam Limitations: no limitations General appearance: alert, in no apparent distress Head exam: Present: atraumatic, normocephalic, normal inspection Eye exam: Present: normal appearance, PERRL, EOMI. Absent: scleral icterus, conjunctival injection, periorbital swelling ENT exam: Present: normal exam, mucous membranes moist Neck exam: Present: normal inspection, full ROM. Absent: tenderness, meningismus, lymphadenopathy Respiratory exam: Present: normal lung sounds bilaterally. Absent: respiratory distress, wheezes, rales, rhonchi, stridor Cardiovascular Exam: Present: regular rate, normal rhythm, normal heart sounds. Absent: systolic murmur, diastolic murmur, rubs, gallop, clicks GI/Abdominal exam: Present: soft, normal bowel sounds. Absent: distended, tenderness, guarding, rebound, rigid Extremities exam: Present: normal inspection, full ROM, normal capillary refill. Absent: tenderness, pedal edema, joint swelling, calf tenderness Neurological exam: Present: alert, oriented X3, CN II-XII intact Psychiatric exam: Present: normal affect, normal mood Skin exam: Present: warm, dry, intact, normal color. Absent: rash Course Vital Signs 09/09/24 09/09/24 09/09/24 14:06 17:08 18:44 Temperature 97.5 F L 98.4 F 98.5 F Pulse Rate 66 60 52 L Respiratory 24 16 18 Rate Blood Pressure 108/79 116/72 96/58 O2 Sat by Pulse 99 100 100 Oximetry Medical Decision Making - Medical Decision Making Was pt. sent in by a medical professional or institution ([facility], RENTAL COORDINATOR, urgent care, hospital, or long-term...) When possible be specific @ -No Did you speak to anyone other than the patient for history (EMS, parent, family, police, friend...)? What history was obtained from this source @ -No Did you review nursing and triage notes (agree or disagree)? Why? @ -I reviewed and agree with nursing and triage notes Were old charts reviewed (outside hosp., previous admission, EMS record, old EKG, old radiological studies, urgent care reports/EKG's, long-term records)? Report findings @ -No old charts were reviewed Differential Diagnosis (chest pain, altered mental status, abdominal pain women, abdominal pain men, vaginal bleeding, weakness, fever, dyspnea, syncope, headache, dizziness, GI bleed, back pain, seizure, CVA, palpatations, mental health, musculoskeletal)? @ -Differential Headache: Migraine, tension, cluster, carbon monoxide, central venous thrombosis, pension karma temporal arteritis, acute closure glaucoma, intercranial hemorrhage, mastoiditis, sinusitis, head injury, this is not meant to be an all-inclusive list. EKG interpreted by me (3pts min.). @ -None X-rays interpreted by me (1pt min.). @ -None done CT interpreted by me (1pt min.). @ -None done U/S interpreted by me (1pt. min.). @ -None done What testing was considered but not performed or refused? (CT, X-rays, U/S, labs)? Why? @ -None What meds were considered but not given or refused? Why? @ -None Did you discuss the management of the patient with other professionals (professionals i.e. , PA, RENTAL COORDINATOR, lab, RT, psych nurse, social media manager, promotional model, teacher, agricultural extension officer, case consultant)? Give summary @ -No Was smoking cessation discussed for >3mins.? @ -No Was critical care preformed (if so, how long)? @ -No Were there social determinants of health that impacted care today? How? (Homelessness, low income, unemployed, alcoholism, drug addiction, transportation, low edu. Level, literacy, decrease access to med. care, long-term, rehab)? @ -No Was there de-escalation of care discussed even if they declined (Discuss DNR or withdrawal of care, Hospice)? DNR status @ -No What co-morbidities impacted this encounter? (DM, HTN, Smoking, COPD, CAD, Cancer, CVA, ARF, Chemo, Hep., AIDS, mental health diagnosis, sleep apnea, morbid obesity)? @ -None Was patient admitted / discharged? Hospital course, mention meds given and route, prescriptions, significant lab abnormalities, going to OR and other pertinent info. @ -Discharge.Patient presents emergency department for evaluation of headache. Laboratory studies obtained revealing no significant leukocytosis, hemoglobin 13.7; CMP is nonactionable UA shows no significant evidence of infection. Urine drug screen positive for opiates and marijuana. Patient was provided medication for pain control in the emergency department. She will be discharged home. Patient understanding agreeable plan. Patient stable at time of disch arge. Case discussed with Dr. Baker. Problem with uncertain prognosis? @ -No Drug Therapy requiring intensive monitoring for toxicity (Heparin, Nitro, Insulin, Cardizem)? @ -No Were any procedures done? @ -No Diagnosis/symptom? @ -Headache Acute, or Chronic, or Acute on Chronic? @ -[Acute Uncomplicated (without systemic symptoms) or Complicated (systemic symptoms)? @ -Uncomplicated Side effects of treatment? @ -No Exacerbation, Progression, or Severe Exacerbation? @ -No Poses a threat to life or bodily function? How? (Chest pain, USA, MA, pneumonia, PE, COPD, DKA, ARF, appy, cholecystitis, CVA, Diverticulitis, Homicidal, Suicidal, threat to staff... and all critical care pts) @ -No - Lab Data Result diagrams: 09/09/24 16:23 09/09/24 16:23 Lab Results 09/09/24 09/09/24 09/09/24 Range/Units 16:23 16:23 16:23 WBC 7.93 (4.50-10.00) 10*3/uL RBC 4.44 (4.10-5.20) 10*6/uL Hgb 13.7 (12.0-15.0) g/dL Hct 40.6 (37.2-46.3) % MCV 91.4 (80.0-97.0) fL MCH 30.9 (27.0-32.0) pg MCHC 33.7 (32.0-37.0) g/dL Plt Count 323 (140-440) 10*3/uL MPV 8.8 L (9.5-12.2) fL Immature Gran % (Auto) 0.3 % Neutrophils % 79.9 % Lymphocytes % 14.5 % Monocytes % 4.8 % Eosinophils % 0.1 % Basophils % 0.4 % Immature Gran # 0.02 (0.00-0.04) 10*3/uL Neutrophils # 6.34 (1.80-7.70) 10*3/uL Lymphocytes # 1.15 (0.90-5.00) 10*3/uL Monocytes # 0.38 (0.20-1.00) 10*3/uL Eosinophils # 0.01 L (0.04-0.35) 10*3/uL Basophils # 0.03 (0.00-0.10) 10*3/uL Sodium (137-145) mmol/L Potassium (3.5-5.1) mmol/L Chloride (98-107) mmol/L Carbon Dioxide (22-30) mmol/L Anion Gap mmol/L BUN (7-17) mg/dL Creatinine (0.52-1.04) mg/dL Est GFR (CKD-EPI)AfAm (>60 ml/min/1.73 sqM) Est GFR (CKD-EPI)NonAf (>60 ml/min/1.73 sqM) Glucose (74-99) mg/dL Calcium (8.4-10.2) mg/dL Total Bilirubin (0.2-1.3) mg/dL AST (14-36) U/L ALT (4-34) U/L Alkaline Phosphatase (38-126) U/L Total Protein (6.3-8.2) g/dL Albumin (3.5-5.0) g/dL Lipase (23-300) U/L Urine Color Light Yellow Urine Appearance Turbid H (Clear) Urine pH 7.5 (5.0-8.0) Ur Specific [place] 1.016 (1.001-1.035) Urine Protein Negative (Negative) Urine Glucose (UA) Negative (Negative) Urine Ketones Negative (Negative) Urine Blood Negative (Negative) Urine Nitrite Negative (Negative) Urine Bilirubin Negative (Negative) Urine Urobilinogen <2.0 (<2.0) mg/dL Ur Leukocyte Esterase Negative (Negative) Urine RBC 4 (0-5) /hpf Urine WBC 8 H (0-5) /hpf Ur Squamous Epith Cells 3 (0-4) /hpf Urine Mucus Occasional H (None) /hpf Urine Yeast (Budding) Many H (None) /hpf Urine HCG, Qual Not Detected (Not Detectd) Urine Opiates Screen (NotDetected) Ur Oxycodone Screen (NotDetected) Urine Methadone Screen (NotDetected) Ur Barbiturates Screen (NotDetected) U Tricyclic Antidepress (NotDetected) Ur Phencyclidine Scrn (NotDetected) Ur Amphetamines Screen (NotDetected) U Methamphetamines Scrn (NotDetected) U Benzodiazepines Scrn (NotDetected) Urine Cocaine Screen (NotDetected) U Marijuana (THC) Screen (NotDetected) 07/08/25 07/08/25 Range/Units 16:23 17:59 WBC (4.50-10.00) 10*3/uL RBC (4.10-5.20) 10*6/uL Hgb (12.0-15.0) g/dL Hct (37.2-46.3) % MCV (80.0-97.0) fL MCH (27.0-32.0) pg MCHC (32.0-37.0) g/dL Plt Count (140-440) 10*3/uL MPV (9.5-12.2) fL Immature Gran % (Auto) % Neutrophils % % Lymphocytes % % Monocytes % % Eosinophils % % Basophils % % Immature Gran # (0.00-0.04) 10*3/uL Neutrophils # (1.80-7.70) 10*3/uL Lymphocytes # (0.90-5.00) 10*3/uL Monocytes # (0.20-1.00) 10*3/uL Eosinophils # (0.04-0.35) 10*3/uL Basophils # (0.00-0.10) 10*3/uL Sodium 138 (137-145) mmol/L Potassium 4.3 (3.5-5.1) mmol/L Chloride 104 (98-107) mmol/L Carbon Dioxide 26 (22-30) mmol/L Anion Gap 8 mmol/L BUN 13 (7-17) mg/dL Creatinine 0.56 (0.52-1.04) mg/dL Est GFR (CKD-EPI)AfAm >90 (>60 ml/min/1.73 sqM) Est GFR (CKD-EPI)NonAf >90 (>60 ml/min/1.73 sqM) Glucose 109 H (74-99) mg/dL Calcium 9.2 (8.4-10.2) mg/dL Total Bilirubin 0.5 (0.2-1.3) mg/dL AST 23 (14-36) U/L ALT 25 (4-34) U/L Alkaline Phosphatase 42 (38-126) U/L Total Protein 7.5 (6.3-8.2) g/dL Albumin 4.3 (3.5-5.0) g/dL Lipase 64 (23-300) U/L Urine Color Urine Appearance (Clear) Urine pH (5.0-8.0) Ur Specific [place] (1.001-1.035) Urine Protein (Negative) Urine Glucose (UA) (Negative) Urine Ketones (Negative) Urine Blood (Negative) Urine Nitrite (Negative) Urine Bilirubin (Negative) Urine Urobilinogen (<2.0) mg/dL Ur Leukocyte Esterase (Negative) Urine RBC (0-5) /hpf Urine WBC (0-5) /hpf Ur Squamous Epith Cells (0-4) /hpf Urine Mucus (None) /hpf Urine Yeast (Budding) (None) /hpf Urine HCG, Qual (Not Detectd) Urine Opiates Screen Detected H (NotDetected) Ur Oxycodone Screen Not Detected (NotDetected) Urine Methadone Screen Not Detected (NotDetected) Ur Barbiturates Screen Not Detected (NotDetected) U Tricyclic Antidepress Not Detected (NotDetected) Ur Phencyclidine Scrn Not Detected (NotDetected) Ur Amphetamines Screen Not Detected (NotDetected) U Methamphetamines Scrn Not Detected (NotDetected) U Benzodiazepines Scrn Not Detected (NotDetected) Urine Cocaine Screen Not Detected (NotDetected) U Marijuana (THC) Screen Detected H (NotDetected) Disposition Clinical Impression: Headache Disposition: HOME SELF-CARE Condition: Stable Instructions (If sedation given, give patient instructions): Acute Headache (ED) Additional Instructions: Please follow-up your doctor. Return to the emergency department for new or worsening symptoms. Is patient prescribed a controlled substance at d/c from ED?: No Referrals: None,Stated [Primary Care Provider] - 1-2 days
[2024-09-09] MEDS: SODIUM CHLORIDE 0.9% 1,000 ML IV ONE (16:22)
[2024-09-09] MEDS: diphenhydrAMINE 50 MG/ML 1 ML VIAL IVP STA (16:23)
[2024-09-09] MEDS: KETOROLAC 15 MG/ML 1 ML VIAL IVP STA (16:23)
[2024-09-09] MEDS: METOCLOPRAMIDE 5 MG/ML 2 ML VIAL IVP STA (16:23)
[2024-09-09 16:31] LABS: Basophils # (A) 0.03 10*3/uL (0.00-0.10); Basophils % (A) 0.4 %; Eosinophils # (A) 0.01 10*3/uL (0.04-0.35); Eosinophils % (A) 0.1 %; HCT 40.6 % (37.2-46.3); HGB 13.7 g/dL (12.0-15.0); Lymphocytes # (A) 1.15 10*3/uL (0.90-5.00); Lymphocytes % (A) 14.5 %; MCH 30.9 pg (27.0-32.0); MCHC 33.7 g/dL (32.0-37.0); MCV 91.4 fL (80.0-97.0); Monocytes # (A) 0.38 10*3/uL (0.20-1.00); Monocytes % (A) 4.8 %; Neutrophils # (A) 6.34 10*3/uL (1.80-7.70); Neutrophils % (A) 79.9 %; Platelet Count 323 10*3/uL (140-440); RBC 4.44 10*6/uL (4.10-5.20); RDW 13.0 % (11.5-14.5); WBC 7.93 10*3/uL (4.50-10.00)
[2024-09-09 16:40] LABS: Bilirubin,Urine Negative (Negative); Blood,Urine Negative (Negative); Budding Yeast,Urine Many /hpf; Color,Urine Light Yellow; Glucose,Urine (UA) Negative (Negative); Ketones,Urine Negative (Negative); Leukocyte Esterase,Urine Negative (Negative); Mucus,Urine Occasional /hpf; Nitrite,Urine Negative (Negative); PH, Urine 7.5 (5.0-8.0); Protein,Urine Negative (Negative); RBC,Urine 4 /hpf (0-5); Specific Gravity,Urine 1.016 (1.001-1.035); Squamous Epithelial Cell,Urine 3 /hpf (0-4); Urobilinogen,Urine <2.0 mg/dL (<2.0); WBC,Urine 8 /hpf (0-5)
[2024-09-09 16:42] LABS: ALT 25 U/L (4-34); AST 23 U/L (14-36); African American GFR (CKD) >90 (>60 ml/min/1.73 sqM); Albumin 4.3 g/dL (3.5-5.0); Alkaline Phosphatase 42 U/L (38-126); Anion Gap 8 mmol/L; Blood Urea Nitrogen 13 mg/dL (7-17); Calcium 9.2 mg/dL (8.4-10.2); Carbon Dioxide 26 mmol/L (22-30); Chloride 104 mmol/L (98-107); Glucose 109 mg/dL (74-99); Lipase 64 U/L (23-300); Non-African American GFR(CKD) >90 (>60 ml/min/1.73 sqM); Potassium 4.3 mmol/L (3.5-5.1); Sodium 138 mmol/L (137-145); Total Protein 7.5 g/dL (6.3-8.2)
[2024-09-09] MEDS: HYDROmorphone 1 MG/ML 1 ML SYRINGE IVP STA (17:24)
[2024-09-09 18:26] LABS: Benzodiazepines Screen,Urine Not Detected (NotDetected); Opiate Screen,Urine Detected (NotDetected); Phencyclidine Screen,Urine Not Detected (NotDetected); Tricyclic Antidepressant,Urine Not Detected (NotDetected); Urn Cannabinoid Scrn Detected (NotDetected)
[2024-09-09 18:27] LABS: Barbiturate Screen,Urine Not Detected (NotDetected); Oxycodone Screen, Urine Not Detected (NotDetected)
[2024-09-09] MEDS: ONDANSETRON 4 MG/2 ML VIAL IVP STA (18:37)
[2024-09-09 18:45] VITALS: BP 96/58; PULSE 52; RESP 18; TEMP 98.5
== END 2024-09-09 18:46 | disposition home or self-care (01) ==
LOC: EC 13:55
DX: G43.909 Migraine, unspecified, not intractable, without status migrainosus (principal); Z88.0 Allergy status to penicillin; Z88.1 Allergy status to other antibiotic agents
CPT/HCPCS: 36415; 80053; 83690; 85025; 81001; 81025; 80306; 99283; 96374; 96375; 96361; J1200; J2765; J2405; J1171; J1885